=== PATIENT | male | born 1950 | race Caucasian/White ===

== ENCOUNTER 2022-02-25 16:44 | Outpatient (RCR) | payer MEDICARE, SELFPAY ==
[2022-02-25 08:24] LABS: Basophils Absolute Auto 0.05 K/uL (0.00-0.30); Basophils Percent Auto 0.7 % (0.0-3.0); Eosinophils Percent Auto 9.6 % (0.0-7.0); Hematocrit 36.7 % (37.0-53.0); Hemoglobin* 12.6 gm/dL (13.5-17.5); Immature Granulocytes Abs Auto 0.05 K/uL (0.00-0.30); Mean Corpuscular HGB Conc 34 gm/dL (32-36); Mean Corpuscular Hemoglobin 31 pg (26-34); Mean Corpuscular Volume 89 fL (80-100); Monocytes Percent Auto 10.3 % (0.0-11.0); Neutrophils Absolute Auto 4.53 K/uL (1.7-7.0); Neutrophils Percent Auto 62.7 % (42.0-72.0); Platelet Count* 277 K/uL (140-440); RDW Coefficient of Variation % 12.7 % (11.5-15.5); Red Blood Count 4.11 m/uL (4.30-5.90); White Blood Count* 7.21 K/uL (4.50-11.00)
[2022-02-25 08:27] LABS: Slide Review Reflex No
[2022-02-25 08:38] LABS: Albumin* 4.2 g/dL (3.3-5.0); Chloride* 102 mmol/L (96-114); Sodium* 136 mmol/L (135-149)
[2022-02-25 08:39] LABS: Potassium* 3.8 mmol/L (3.6-5.1)
[2022-02-25 08:41] LABS: Aspartate Amino Transferase* 23 U/L (12-35); Bilirubin Total* 0.6 mg/dL (0.1-1.5); Blood Urea Nitrogen* 16 mg/dL (7-30); Carbon Dioxide* 27 mmol/L (20-32); Creatinine* 0.7 mg/dL (0.5-1.5); Estimated Glomerular Filt Rate 99 ml/min; Total Protein* 7.1 g/dL (6.0-8.3)
[2022-02-25 08:42] LABS: Alanine Aminotransferase* 17 U/L (4-50); Alkaline Phosphatase* 85 U/L (40-150); Calcium* 9.5 mg/dL (8.4-10.6); Glucose* 105 mg/dL (60-115)
[2022-02-25 09:13] LABS: PSA Diagnostic* 0.11 ng/mL (0.10-4.00)
--- NOTE | 2022-03-01 13:17 | ONC.NURNOTE ---
Lab reviewd by Dr Burris and called to [place] reports small improvement in fatigue with 3 tabs/day Xtand noted change in PSA will review with provider again next month with a PSA
== END 2022-03-06 23:59 | disposition home or self-care (01) ==
LOC: CCIC 16:44
PROVIDERS: Nurse Practitioner Family; PCP Family Medicine; Visit Provider Internal Medicine Medical Oncology
DX: C61 Malignant neoplasm of prostate (principal); M85.80 Other specified disorders of bone density and structure, unspecified site
CPT/HCPCS: 36415; 80053; 84153; 85025

== ENCOUNTER 2022-08-04 09:30 | Outpatient (RCR) | payer MEDICARE, SELFPAY ==
[2022-03-23 08:38] LABS: Basophils Percent Auto 0.2 % (0.0-3.0); Eosinophils Percent Auto 7.8 % (0.0-7.0); Hematocrit 38.3 % (37.0-53.0); Hemoglobin* 13.3 gm/dL (13.5-17.5); Immature Granulocytes Abs Auto 0.02 K/uL (0.00-0.30); Lymphocytes Percent Auto 17.4 % (20-44); Mean Corpuscular HGB Conc 35 gm/dL (32-36); Mean Corpuscular Hemoglobin 31 pg (26-34); Mean Corpuscular Volume 88 fL (80-100); Monocytes Percent Auto 9.6 % (0.0-11.0); Neutrophils Percent Auto 64.6 % (42.0-72.0); Platelet Count* 218 K/uL (140-440); RDW Coefficient of Variation % 12.6 % (11.5-15.5); Red Blood Count 4.34 m/uL (4.30-5.90); White Blood Count* 4.47 K/uL (4.50-11.00)
[2022-03-23 08:49] LABS: Slide Review Reflex No
[2022-03-23 08:53] LABS: Albumin* 4.2 g/dL (3.3-5.0); Chloride* 99 mmol/L (96-114); Potassium* 3.3 mmol/L (3.6-5.1); Sodium* 136 mmol/L (135-149)
[2022-03-23 08:55] LABS: Bilirubin Total* 0.5 mg/dL (0.1-1.5); Creatinine* 0.7 mg/dL (0.5-1.5); Estimated Glomerular Filt Rate 99 ml/min
[2022-03-23 08:56] LABS: Alanine Aminotransferase* 23 U/L (4-50); Alkaline Phosphatase* 63 U/L (40-150); Aspartate Amino Transferase* 30 U/L (12-35); Blood Urea Nitrogen* 15 mg/dL (7-30); Calcium* 9.1 mg/dL (8.4-10.6); Carbon Dioxide* 30 mmol/L (20-32); Glucose* 131 mg/dL (60-115); Total Protein* 7.2 g/dL (6.0-8.3)
[2022-03-23 09:23] LABS: PSA Diagnostic* 0.12 ng/mL (0.10-4.00)
[2022-04-20 08:18] LABS: Basophils Absolute Auto 0.04 K/uL (0.00-0.30); Basophils Percent Auto 0.8 % (0.0-3.0); Eosinophils Percent Auto 7.7 % (0.0-7.0); Hematocrit 36.4 % (37.0-53.0); Hemoglobin* 12.5 gm/dL (13.5-17.5); Immature Granulocytes Abs Auto 0.03 K/uL (0.00-0.30); Lymphocytes Percent Auto 17.9 % (20-44); Mean Corpuscular HGB Conc 34 gm/dL (32-36); Mean Corpuscular Hemoglobin 31 pg (26-34); Mean Corpuscular Volume 89 fL (80-100); Monocytes Percent Auto 11.9 % (0.0-11.0); Neutrophils Absolute Auto 3.25 K/uL (1.7-7.0); Neutrophils Percent Auto 61.1 % (42.0-72.0); Platelet Count* 210 K/uL (140-440); RDW Coefficient of Variation % 13.1 % (11.5-15.5); Red Blood Count 4.08 m/uL (4.30-5.90); White Blood Count* 5.31 K/uL (4.50-11.00)
[2022-04-20 08:23] LABS: Slide Review Reflex No
[2022-04-20 08:47] LABS: Albumin* 4.3 g/dL (3.3-5.0); Chloride* 102 mmol/L (96-114); Potassium* 3.6 mmol/L (3.6-5.1); Sodium* 136 mmol/L (135-149)
[2022-04-20 08:49] LABS: Aspartate Amino Transferase* 25 U/L (12-35); Bilirubin Total* 0.8 mg/dL (0.1-1.5); Carbon Dioxide* 27 mmol/L (20-32); Creatinine* 0.7 mg/dL (0.5-1.5); Estimated Glomerular Filt Rate 99 ml/min
[2022-04-20 08:50] LABS: Alanine Aminotransferase* 19 U/L (4-50); Alkaline Phosphatase* 74 U/L (40-150); Blood Urea Nitrogen* 15 mg/dL (7-30); Calcium* 9.2 mg/dL (8.4-10.6); Glucose* 109 mg/dL (60-115); Total Protein* 7.1 g/dL (6.0-8.3)
[2022-04-20 09:18] LABS: PSA Diagnostic* 0.12 ng/mL (0.10-4.00)
--- NOTE | 2022-04-21 12:35 | ONC.NURNOTE ---
Lab results reviewed by Lolly and called to [place] noted as stable, PSA stable reports less hot flashes since reducing dose no new concerns next appts reviewed
[2022-05-18 08:26] LABS: Basophils Percent Auto 0.5 % (0.0-3.0); Eosinophils Percent Auto 5.6 % (0.0-7.0); Hematocrit 37.3 % (37.0-53.0); Hemoglobin* 12.8 gm/dL (13.5-17.5); Immature Granulocytes Abs Auto 0.02 K/uL (0.00-0.30); Lymphocytes Percent Auto 22.7 % (20-44); Mean Corpuscular HGB Conc 34 gm/dL (32-36); Mean Corpuscular Hemoglobin 31 pg (26-34); Mean Corpuscular Volume 89 fL (80-100); Monocytes Percent Auto 13.4 % (0.0-11.0); Neutrophils Percent Auto 57.3 % (42.0-72.0); Platelet Count* 231 K/uL (140-440); Red Blood Count 4.19 m/uL (4.30-5.90); White Blood Count* 3.96 K/uL (4.50-11.00)
[2022-05-18 08:34] LABS: Slide Review Reflex No
[2022-05-18 08:57] LABS: Albumin* 4.5 g/dL (3.3-5.0); Chloride* 101 mmol/L (96-114); Potassium* 3.8 mmol/L (3.6-5.1); Sodium* 136 mmol/L (135-149)
[2022-05-18 08:59] LABS: Bilirubin Total* 0.8 mg/dL (0.1-1.5); Creatinine* 0.7 mg/dL (0.5-1.5); Estimated Glomerular Filt Rate 99 ml/min
[2022-05-18 09:00] LABS: Alanine Aminotransferase* 19 U/L (4-50); Alkaline Phosphatase* 68 U/L (40-150); Aspartate Amino Transferase* 26 U/L (12-35); Blood Urea Nitrogen* 19 mg/dL (7-30); Calcium* 9.7 mg/dL (8.4-10.6); Carbon Dioxide* 25 mmol/L (20-32); Glucose* 110 mg/dL (60-115); Total Protein* 7.1 g/dL (6.0-8.3)
[2022-05-18 09:30] LABS: PSA Diagnostic* 0.12 ng/mL (0.10-4.00)
--- NOTE | 2022-07-28 09:25 | ONC.NURNOTE ---
Approved for re-enrollment for 2022 [employer] for free medication
--- NOTE | 2022-08-01 11:58 | URNOTE ---
Request received for authorization for Leuprolide (J9217). Prior authorization is not required per [facility] injectable drug authorization list.
[2022-08-03 08:31] LABS: Basophils Absolute Auto 0.03 K/uL (0.00-0.30); Basophils Percent Auto 0.5 % (0.0-3.0); Eosinophils Percent Auto 7.6 % (0.0-7.0); Hematocrit 37.8 % (37.0-53.0); Immature Granulocytes Abs Auto 0.02 K/uL (0.00-0.30); Immature Granulocytes Pct Auto 0.4 %; Lymphocytes Percent Auto 18.3 % (20-44); Mean Corpuscular HGB Conc 34 gm/dL (32-36); Mean Corpuscular Hemoglobin 31 pg (26-34); Mean Corpuscular Volume 90 fL (80-100); Monocytes Percent Auto 12.2 % (0.0-11.0); Neutrophils Absolute Auto 3.39 K/uL (1.7-7.0); Platelet Count* 270 K/uL (140-440); RDW Coefficient of Variation % 12.7 % (11.5-15.5); Red Blood Count 4.21 m/uL (4.30-5.90); White Blood Count* 5.56 K/uL (4.50-11.00)
[2022-08-03 08:33] LABS: Slide Review Reflex No
[2022-08-03 08:52] LABS: Albumin* 4.4 g/dL (3.3-5.0); Chloride* 103 mmol/L (96-114)
[2022-08-03 08:53] LABS: Potassium* 4.1 mmol/L (3.6-5.1); Sodium* 137 mmol/L (135-149)
[2022-08-03 08:55] LABS: Aspartate Amino Transferase* 23 U/L (12-35); Bilirubin Total* 0.8 mg/dL (0.1-1.5); Carbon Dioxide* 29 mmol/L (20-32); Creatinine* 0.9 mg/dL (0.5-1.5); Estimated Glomerular Filt Rate 91 ml/min
[2022-08-03 08:56] LABS: Alanine Aminotransferase* 21 U/L (4-50); Alkaline Phosphatase* 62 U/L (40-150); Blood Urea Nitrogen* 15 mg/dL (7-30); Calcium* 9.6 mg/dL (8.4-10.6); Glucose* 114 mg/dL (60-115); Total Protein* 6.9 g/dL (6.0-8.3)
[2022-08-03 10:07] LABS: PSA Diagnostic* 0.23 ng/mL (0.10-4.00)
== END 2022-09-19 23:59 | disposition home or self-care (01) ==
LOC: CCIC 09:30
PROVIDERS: Internal Medicine Medical Oncology; Nurse Practitioner Family; PCP Family Medicine; Referring Provider Family Medicine; Visit Provider Physician Assistant
DX: C61 Malignant neoplasm of prostate (principal); C79.51 Secondary malignant neoplasm of bone; M85.80 Other specified disorders of bone density and structure, unspecified site
CPT/HCPCS: 36415; 80053; 84153; 85025; 96401; 99212; 99214; J9217

== ENCOUNTER 2022-11-17 12:42 | Outpatient (CLI) | payer MEDICARE, SELFPAY ==
--- NOTE | 2022-11-17 13:00 | CRLHL7_ITS ---
For Patients: As a result of the Century Cures Act, medical imaging exams and procedure reports are released immediately into your electronic medical record. You may view this report before your referring provider. If you have questions, please contact your health care provider. DXA BONE MINERAL DENSITY STUDY Reason for exam: Osteopenia; androgen deprivation therapy. Current height (in): 68. Weight (lb): 215. Menopause age: N/A. Ethnicity: White. 1. Have you had a previous hip or vertebral fracture? No. 2. Have you had any fractures during your adult life which did not result from significant trauma (e.g., auto accident)? No. 3. Did either of your parents have a hip fracture? No. 4. Do you smoke? No. 5. Have you ever taken Glucocorticoids? No. 6. Do you have rheumatoid arthritis? No. 7. Do you have secondary osteoporosis? No. 8. Do you drink 3 or more alcoholic drinks per day? No. 9. Are you being treated for osteoporosis? No. 10. Have you ever taken any of the following medications: Actonel, Evista, Fosamax, Miacalcin, Reclast, Boniva, Forteo, HRT (i.e., estrogen/hormone therapy), Protelos, Prolia, Vitamin D, Calcium, other ??? please specify. ANSWER: Yes, calcium. 11. Do you have any of the following medical conditions: Anorexia or bulimia, asthma or emphysema, end stage renal disease, hyperparathyroidism, any seizure disorders, cancer, inflammatory bowel diseases, hysterectomy, other ??? please specify. ANSWER: Yes, cancer. 12. What was your maximum height (inches)? 69. 13. Do you perform weight bearing exercise regularly? No 14. Do you regularly consume dairy products? Yes. 15. Do you drink caffeinated beverages? Yes. TECHNIQUE: Bone mineral density study was performed using the [employer]. FINDINGS: The results of the study expressed as bone mineral density (BMD) are as follows: Lumbar spine L1 to L2: BMD: 1.104 g/cm2. T-score: 0.5. Z-score: 1.4 Neck Left: BMD: 0.789 g/cm2. T-score: -1.0. Z-score: 0.2 Right: BMD: 0.873 g/cm2. T-score: -0.4. Z-score: 0.8 Total Left: BMD: 1.022 g/cm2. T-score: -0.1. Z-score: 0.6 Right: BMD: 1.054 g/cm2. T-score: 0.1. Z-score: 0.9 IMPRESSION: Normal bone density. Mack Medina M.D. Diagnostic Radiologist [email or web address]/Dictated by: Mack Medina MD @ 11/17/2022 1:50:00 PM (Electronically Signed)
== END 2022-11-17 12:43 | disposition home or self-care (01) ==
LOC: RAD 12:43
PROVIDERS: PCP Family Medicine; Visit Provider Physician Assistant
DX: M85.80 Other specified disorders of bone density and structure, unspecified site (principal); Z79.818 Long term (current) use of other agents affecting estrogen receptors and estrogen levels
CPT/HCPCS: 77080

== ENCOUNTER 2023-02-13 09:00 | Outpatient (RCR) | payer MEDICARE, SELFPAY ==
[2022-11-02 08:13] LABS: Basophils Absolute Auto 0.03 K/uL (0.00-0.30); Basophils Percent Auto 0.5 % (0.0-3.0); Eosinophils Absolute Auto 0.28 K/uL (0.00-0.50); Eosinophils Percent Auto 5.1 % (0.0-7.0); Hemoglobin* 12.8 gm/dL (13.5-17.5); Immature Granulocytes Abs Auto 0.01 K/uL (0.00-0.30); Immature Granulocytes Pct Auto 0.2 %; Lymphocytes Percent Auto 19.3 % (20-44); Mean Corpuscular HGB Conc 34 gm/dL (32-36); Mean Corpuscular Hemoglobin 30 pg (26-34); Mean Corpuscular Volume 90 fL (80-100); Monocytes Percent Auto 12.4 % (0.0-11.0); Neutrophils Absolute Auto 3.44 K/uL (1.7-7.0); Neutrophils Percent Auto 62.5 % (42.0-72.0); Platelet Count* 249 K/uL (140-440); RDW Coefficient of Variation % 13.1 % (11.5-15.5); Red Blood Count 4.22 m/uL (4.30-5.90)
[2022-11-02 08:16] LABS: Slide Review Reflex No
[2022-11-02 08:26] LABS: Albumin* 4.5 g/dL (3.3-5.0); Chloride* 100 mmol/L (96-114); Sodium* 137 mmol/L (135-149)
[2022-11-02 08:27] LABS: Potassium* 3.9 mmol/L (3.6-5.1)
[2022-11-02 08:29] LABS: Alanine Aminotransferase* 23 U/L (4-50); Alkaline Phosphatase* 54 U/L (40-150); Aspartate Amino Transferase* 25 U/L (12-35); Bilirubin Total* 0.9 mg/dL (0.1-1.5); Blood Urea Nitrogen* 19 mg/dL (7-30); Carbon Dioxide* 31 mmol/L (20-32); Creatinine* 0.8 mg/dL (0.5-1.5); Estimated Glomerular Filt Rate 95 ml/min; Glucose* 124 mg/dL (60-115); Total Protein* 7.4 g/dL (6.0-8.3)
[2022-11-02 08:30] LABS: Calcium* 9.4 mg/dL (8.4-10.6)
[2022-11-02 09:00] LABS: PSA Diagnostic* 0.42 ng/mL (0.10-4.00)
[2023-02-01 08:21] LABS: Basophils Absolute Auto 0.03 K/uL (0.00-0.30); Basophils Percent Auto 0.5 % (0.0-3.0); Eosinophils Absolute Auto 0.39 K/uL (0.00-0.50); Hematocrit 40.9 % (37.0-53.0); Hemoglobin* 13.9 gm/dL (13.5-17.5); Immature Granulocytes Abs Auto 0.03 K/uL (0.00-0.30); Immature Granulocytes Pct Auto 0.5 %; Mean Corpuscular HGB Conc 34 gm/dL (32-36); Mean Corpuscular Hemoglobin 31 pg (26-34); Mean Corpuscular Volume 90 fL (80-100); Monocytes Percent Auto 10.2 % (0.0-11.0); Neutrophils Absolute Auto 4.25 K/uL (1.7-7.0); Neutrophils Percent Auto 64.8 % (42.0-72.0); Platelet Count* 294 K/uL (140-440); RDW Coefficient of Variation % 12.9 % (11.5-15.5); Red Blood Count 4.56 m/uL (4.30-5.90); White Blood Count* 6.55 K/uL (4.50-11.00)
[2023-02-01 08:26] LABS: Slide Review Reflex No
[2023-02-01 08:36] LABS: Albumin* 4.5 g/dL (3.3-5.0); Chloride* 100 mmol/L (96-114); Potassium* 3.9 mmol/L (3.6-5.1); Sodium* 136 mmol/L (135-149)
[2023-02-01 08:38] LABS: Bilirubin Total* 0.9 mg/dL (0.1-1.5); Creatinine* 0.8 mg/dL (0.5-1.5); Estimated Glomerular Filt Rate 94 ml/min
[2023-02-01 08:39] LABS: Alanine Aminotransferase* 21 U/L (4-50); Alkaline Phosphatase* 64 U/L (40-150); Aspartate Amino Transferase* 27 U/L (12-35); Blood Urea Nitrogen* 18 mg/dL (7-30); Calcium* 9.8 mg/dL (8.4-10.6); Carbon Dioxide* 28 mmol/L (20-32); Glucose* 102 mg/dL (60-115); Total Protein* 7.5 g/dL (6.0-8.3)
[2023-02-01 09:07] LABS: PSA Diagnostic* 0.89 ng/mL (0.10-4.00)
[2023-02-14 08:02] LABS: Testosterone, Adult Male 8 ng/dL (300-720)
== END 2023-05-01 23:59 | disposition home or self-care (01) ==
LOC: CCIC 09:00
PROVIDERS: Physician Assistant; PCP Family Medicine; Referring Provider Family Medicine; Visit Provider Internal Medicine Hematology & Oncology
DX: C61 Malignant neoplasm of prostate (principal)
CPT/HCPCS: 36415; 80053; 84153; 84403; 85025; 96401; 99212; 99215; J9217

== ENCOUNTER 2023-09-20 15:05 | Outpatient (CLI) | payer MEDICARE, SELFPAY | END 2023-09-20 15:06 | disposition home or self-care (01) | LOC: MRI 15:07 | PROVIDERS: PCP Family Medicine; Visit Provider Internal Medicine | DX: R97.21 Rising PSA following treatment for malignant neoplasm of prostate (principal) | CPT/HCPCS: 72158; A9575 ==

== ENCOUNTER 2023-10-12 06:05 | Day surgery (SDC) | payer MEDICARE, SELFPAY ==
[2023-10-12 06:20] VITALS: BP 141/78; PULSE 52; RESP 16; TEMP 36.2; O2SAT 98; BMI 35.6
[2023-10-12] MEDS: LACTATED RINGERS 1000 ML 1,000 ML 100 ML IV (06:25)
[2023-10-12 06:44] LABS: Basophils Absolute Auto 0.02 K/uL (0.00-0.30); Basophils Percent Auto 0.4 % (0.0-3.0); Eosinophils Percent Auto 7.1 % (0.0-7.0); Hematocrit 37.2 % (37.0-53.0); Hemoglobin* 12.7 gm/dL (13.5-17.5); Immature Granulocytes Abs Auto 0.02 K/uL (0.00-0.30); Immature Granulocytes Pct Auto 0.4 %; Mean Corpuscular HGB Conc 34 gm/dL (32-36); Mean Corpuscular Hemoglobin 30 pg (26-34); Mean Corpuscular Volume 89 fL (80-100); Monocytes Percent Auto 11.5 % (0.0-11.0); Neutrophils Absolute Auto 3.48 K/uL (1.7-7.0); Neutrophils Percent Auto 61.6 % (42.0-72.0); Platelet Count* 232 K/uL (140-440); RDW Coefficient of Variation % 12.9 % (11.5-15.5); Red Blood Count 4.19 m/uL (4.30-5.90); White Blood Count* 5.64 K/uL (4.50-11.00)
[2023-10-12] MEDS: SODIUM CHLORIDE 0.9 % (FLUSH) 10 ML SYRINGE IVF (06:45)
--- NOTE | 2023-10-12 06:57 | XR_ITS ---
Patient: VI SUBRAMANIAN Facility:?[facility] Patient ID:?[id number] Site Patient ID:?[id number]. Site :?1950 Study:?XRay-Chest 1V-10/12/2023 8:47:03 AM Ordering Physician:EZEQUIEL Final Report: INDICATION: Post operative port cath TECHNIQUE: Chest radiograph 1 view COMPARISON: None FINDINGS: The sensitivity and specificity of the exam are moderately limited by the patient`s body habitus. Mediastinum: The mediastinum is normal in appearance. The cardiac silhouette is mildly enlarged but may be accentuated by the portable technique. Right Port-A-Cath is present with the tip in the SVC. Lung: Both lungs are unremarkable in appearance with small lung volumes. No sign of pleural effusion seen. No pneumothorax is identified. Bone and Soft tissue: Unremarkable for age. IMPRESSIONS: 1. Right Port-A-Cath is present with the tip in the SVC. 2. The cardiac silhouette is mildly enlarged but may be accentuated by the portable technique. Dictated by Alon Blevins MD @ 10/12/2023 9:51:49 AM Dictated by: Alon Blevins MD @ 10/12/2023 09:51:52 Signed by:?Alon Blevins MD @10/12/2023 9:51:52 AM (Electronic Signature)
[2023-10-12 07:00] LABS: Albumin* 4.3 g/dL (3.3-5.0); Chloride* 103 mmol/L (96-114)
[2023-10-12 07:01] LABS: Potassium* 3.7 mmol/L (3.6-5.1); Sodium* 136 mmol/L (135-149)
[2023-10-12 07:03] LABS: Anion Gap 5 mEq/L (7-15); Aspartate Amino Transferase* 22 U/L (12-35); Bilirubin Total* 0.8 mg/dL (0.1-1.5); Carbon Dioxide* 28 mmol/L (20-32); Creatinine* 0.7 mg/dL (0.5-1.5); Est. Creatinine Clearance* 60.26; Estimated Glomerular Filt Rate 98 ml/min; Total Protein* 7.2 g/dL (6.0-8.3)
[2023-10-12 07:04] LABS: Alanine Aminotransferase* 19 U/L (4-50); Alkaline Phosphatase* 68 U/L (40-150); Blood Urea Nitrogen* 19 mg/dL (7-30); Calcium* 9.8 mg/dL (8.4-10.6); Glucose* 105 mg/dL (60-115)
[2023-10-12 07:15] LABS: Slide Review Reflex No
--- NOTE | 2023-10-12 07:15 | XR_ITS ---
Patient: VI SUBRAMANIAN Facility:?[facility] Patient ID:?[id number] Site Patient ID:?[id number]. Site :?1950 Study:?XRay-Chest PORT CATH-10/12/2023 8:10:38 AM Ordering Physician:EZEQUIEL Final Report: Indication: Port-A-Cath placement Technique: Two fluoroscopic images of the chest. Fluoroscopic time 45.6 seconds. IMPRESSION: Fluoroscopic guidance for Port-A-Cath placement. Dictated by Mack Medina MD @ 10/12/2023 10:30:33 AM Signed by:?Mack Medina MD @10/12/2023 10:30:33 AM (Electronic Signature)
[2023-10-12] MEDS: CEFAZOLIN 2 GM INJ IVP (07:25)
[2023-10-12] MEDS: 0.9 % SODIUM CHLORIDE 50 ml INJECTION (08:00)
[2023-10-12] MEDS: BUPIVACAINE 0.5% 30 ML INJECTION (08:00)
[2023-10-12] MEDS: HEPARIN 500 UNIT/5 ML SYRINGE IVF (08:00)
[2023-10-12] MEDS: LIDOCAINE 1 % PF 30 ML INJECTION (08:03)
[2023-10-12 08:18] VITALS: BP 136/87; PULSE 56; RESP 16; TEMP 36.4; O2SAT 97
--- NOTE | 2023-10-12 08:21 | XR_ITS ---
Patient: VI SUBRAMANIAN Facility:?[facility] Patient ID:?[id number] Site Patient ID:?[id number]. Site :?1950 Study:?XRay-Chest 1V-10/12/2023 8:47:03 AM Ordering Physician:EZEQUIEL Final Report: INDICATION: Post operative port cath TECHNIQUE: Chest radiograph 1 view COMPARISON: None FINDINGS: The sensitivity and specificity of the exam are moderately limited by the patient`s body habitus. Mediastinum: The mediastinum is normal in appearance. The cardiac silhouette is mildly enlarged but may be accentuated by the portable technique. Right Port-A-Cath is present with the tip in the SVC. Lung: Both lungs are unremarkable in appearance with small lung volumes. No sign of pleural effusion seen. No pneumothorax is identified. Bone and Soft tissue: Unremarkable for age. IMPRESSIONS: 1. Right Port-A-Cath is present with the tip in the SVC. 2. The cardiac silhouette is mildly enlarged but may be accentuated by the portable technique. Dictated by Alon Blevins MD @ 10/12/2023 9:51:49 AM Dictated by: Alon Blevins MD @ 10/12/2023 09:51:52 Signed by:?Alon Blevins MD @10/12/2023 9:51:52 AM (Electronic Signature)
--- NOTE | 2023-10-12 08:22 | W.PM.H&PU ---
History & Physical Update History & Physical Update H&P Reviewed and patient assessed: No changes noted
--- NOTE | 2023-10-12 08:22 | W.ANESCHARGE ---
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
--- NOTE | 2023-10-12 08:22 | PM.GSPRC ---
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 He is followed by Oncology who recommended a port a catheter for initiation of chemotherapy. Risks and benefits of the operation were discussed at length the patient. Risks included, but were not limited to: Bleeding, infection, risk of damage to surrounding structures and possible need for additional procedures. All questions and concerns were addressed with patient agreeing to proceed. Procedure Description: After discussing the risks and benefits of the procedure, the patient signed informed consent.? The operative site was marked and the patient was brought to the operating room and placed on the operating table in supine position.? Care was taken to pad the patient's pressure points.?? The patient was then intubated by anesthesia.?? The operative site was then prepped and draped in the usual sterile fashion.? A time-out was then performed. The patient's right internal jugular vein was visualized using ultrasound. Local anesthetic was injected into the neck skin above the vein. This was accessed percutaneously via Seldinger technique using ultrasound guidance. A skin andrés was made around the wire. Next local anesthetic was injected into the skin below the clavicle and along the proposed tract to the neck incision. A skin incision was then made with a 15 blade and a pocket created in the chest wall with cautery. A tunneler was then used to thread the catheter from the chest wall pocket to the neck incision. Once this was done fluoroscopy was brought into the field. Over the wire the tract was dilated using fluoroscopy. The wire and the dilator were then removed leaving the sheath intact in the vein. Through this the catheter was threaded. Using fluoroscopy the catheter was positioned into the distal SVC. The catheter was noted to flush and aspirate easily. The catheter was then connected to the port. The port was placed in the pocket and secured in place with a single 2 0 Prolene stay suture on the medial side of the port. It was noted to flush and aspirate easily. This was then locked with heparinized saline. The skin was closed with absorbable suture. Sterile dressings were applied. The port was then accessed and is ok to use immediately. Instrument sponge and needle counts were correct at the end of the case. The patient was woken and taken to the PACU in stable condition. Findings: Compressible right internal jugular vein. Anesthesia: MAC and local Surgeon: Shayna Quan MD Estimated blood loss (mL): 5 Condition: stable Disposition: same day
[2023-10-12 08:30] VITALS: BP 144/77; PULSE 53; RESP 16; O2SAT 97
--- NOTE | 2023-10-12 08:41 | W.ANESCHARGE ---
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
[2023-10-12 08:45] VITALS: BP 151/80; PULSE 53; RESP 16; O2SAT 96
== END 2023-10-12 09:10 | disposition home or self-care (01) ==
PROVIDERS: PCP Family Medicine; Visit Provider Surgery
PROC: (CPT 36561; principal; 2023-10-12 07:15)
DX: Z45.2 Encounter for adjustment and management of vascular access device (principal); C61 Malignant neoplasm of prostate; C79.51 Secondary malignant neoplasm of bone
CPT/HCPCS: 36561; 00532; 36415; 71045; 76000; 76998; 80053; 85025; 99100; C1788; J0665; J0690; J1100; J1642; J2001; J2405; J2704; J3010; J7120

== ENCOUNTER 2023-10-12 10:30 | Outpatient (RCR) | payer MEDICARE, SELFPAY ==
[2023-05-03 08:16] LABS: Basophils Absolute Auto 0.03 K/uL (0.00-0.30); Basophils Percent Auto 0.6 % (0.0-3.0); Immature Granulocytes Abs Auto 0.04 K/uL (0.00-0.30); Immature Granulocytes Pct Auto 0.7 %; Lymphocytes Percent Auto 19.8 % (20-44); Mean Corpuscular HGB Conc 34 gm/dL (32-36); Mean Corpuscular Hemoglobin 30 pg (26-34); Mean Corpuscular Volume 89 fL (80-100); Monocytes Percent Auto 10.6 % (0.0-11.0); Neutrophils Absolute Auto 3.26 K/uL (1.7-7.0); Neutrophils Percent Auto 60.3 % (42.0-72.0); Platelet Count* 250 K/uL (140-440); Red Blood Count 4.27 m/uL (4.30-5.90)
[2023-05-03 08:28] LABS: Chloride* 101 mmol/L (96-114); Slide Review Reflex No
[2023-05-03 08:29] LABS: Albumin* 4.3 g/dL (3.3-5.0); Potassium* 3.8 mmol/L (3.6-5.1); Sodium* 138 mmol/L (135-149)
[2023-05-03 08:32] LABS: Alanine Aminotransferase* 23 U/L (4-50); Alkaline Phosphatase* 62 U/L (40-150); Anion Gap 9 mEq/L (7-15); Aspartate Amino Transferase* 27 U/L (12-35); Bilirubin Total* 0.8 mg/dL (0.1-1.5); Blood Urea Nitrogen* 18 mg/dL (7-30); Calcium* 9.8 mg/dL (8.4-10.6); Carbon Dioxide* 28 mmol/L (20-32); Creatinine* 0.8 mg/dL (0.5-1.5); Estimated Glomerular Filt Rate 94 ml/min; Glucose* 118 mg/dL (60-115); Total Protein* 7.3 g/dL (6.0-8.3)
[2023-05-03 09:03] LABS: PSA Diagnostic* 0.62 ng/mL (0.10-4.00)
--- NOTE | 2023-07-05 12:33 | ONC.NURNOTE ---
Addendum entered by Irish Aviles RN 08/14/23 13:47: Enrollment Confirmation letter received for 2023 [employer] through 08/06/2024 Original Note: [employer] confirmed re enrollment thru 08/06/24 Principal Hardware Architect called Oriana to confirm this - no fax was sent to the office
[2023-07-26 08:10] LABS: Basophils Absolute Auto 0.03 K/uL (0.00-0.30); Basophils Percent Auto 0.5 % (0.0-3.0); Eosinophils Percent Auto 8.8 % (0.0-7.0); Hematocrit 38.5 % (37.0-53.0); Hemoglobin* 13.1 gm/dL (13.5-17.5); Immature Granulocytes Abs Auto 0.01 K/uL (0.00-0.30); Immature Granulocytes Pct Auto 0.2 %; Lymphocytes Absolute Auto 1.33 K/uL (0.90-2.90); Mean Corpuscular HGB Conc 34 gm/dL (32-36); Mean Corpuscular Hemoglobin 31 pg (26-34); Mean Corpuscular Volume 91 fL (80-100); Monocytes Percent Auto 11.7 % (0.0-11.0); Neutrophils Absolute Auto 3.44 K/uL (1.7-7.0); Neutrophils Percent Auto 56.8 % (42.0-72.0); Platelet Count* 241 K/uL (140-440); RDW Coefficient of Variation % 12.9 % (11.5-15.5); Red Blood Count 4.24 m/uL (4.30-5.90); White Blood Count* 6.05 K/uL (4.50-11.00)
[2023-07-26 08:26] LABS: Slide Review Reflex No
[2023-07-26 08:32] LABS: Albumin* 4.4 g/dL (3.3-5.0); Chloride* 101 mmol/L (96-114); Sodium* 137 mmol/L (135-149)
[2023-07-26 08:33] LABS: Potassium* 4.2 mmol/L (3.6-5.1)
[2023-07-26 08:35] LABS: Alanine Aminotransferase* 22 U/L (4-50); Alkaline Phosphatase* 64 U/L (40-150); Anion Gap 12 mEq/L (7-15); Aspartate Amino Transferase* 23 U/L (12-35); Bilirubin Total* 0.8 mg/dL (0.1-1.5); Blood Urea Nitrogen* 19 mg/dL (7-30); Carbon Dioxide* 24 mmol/L (20-32); Creatinine* 0.8 mg/dL (0.5-1.5); Estimated Glomerular Filt Rate 94 ml/min; Glucose* 124 mg/dL (60-115); Total Protein* 7.2 g/dL (6.0-8.3)
[2023-07-26 08:36] LABS: Calcium* 9.5 mg/dL (8.4-10.6)
[2023-07-26 09:05] LABS: PSA Diagnostic* 1.22 ng/mL (0.10-4.00)
--- NOTE | 2023-08-31 14:21 | ONC.NURNOTE ---
New RX for Xtandi 40 mg X 4 #120 refills x 11- called to [facility] as written by Dr Dyana Lan faxed copy was not received
[2023-10-05 09:38] LABS: Basophils Absolute Auto 0.02 K/uL (0.00-0.30); Basophils Percent Auto 0.3 % (0.0-3.0); Eosinophils Absolute Auto 0.32 K/uL (0.00-0.50); Eosinophils Percent Auto 5.3 % (0.0-7.0); Hematocrit 38.3 % (37.0-53.0); Immature Granulocytes Abs Auto 0.03 K/uL (0.00-0.30); Immature Granulocytes Pct Auto 0.5 %; Lymphocytes Percent Auto 19.1 % (20-44); Mean Corpuscular HGB Conc 34 gm/dL (32-36); Mean Corpuscular Hemoglobin 31 pg (26-34); Mean Corpuscular Volume 90 fL (80-100); Monocytes Percent Auto 11.4 % (0.0-11.0); Neutrophils Absolute Auto 3.85 K/uL (1.7-7.0); Neutrophils Percent Auto 63.4 % (42.0-72.0); Platelet Count* 258 K/uL (140-440); RDW Coefficient of Variation % 13.1 % (11.5-15.5); Red Blood Count 4.26 m/uL (4.30-5.90); White Blood Count* 6.07 K/uL (4.50-11.00)
[2023-10-05 09:41] LABS: Slide Review Reflex No
[2023-10-05 09:50] LABS: Albumin* 4.4 g/dL (3.3-5.0); Chloride* 99 mmol/L (96-114)
[2023-10-05 09:51] LABS: Sodium* 136 mmol/L (135-149)
[2023-10-05 09:53] LABS: Alanine Aminotransferase* 18 U/L (4-50); Alkaline Phosphatase* 58 U/L (40-150); Anion Gap 8 mEq/L (7-15); Aspartate Amino Transferase* 24 U/L (12-35); Bilirubin Total* 0.7 mg/dL (0.1-1.5); Blood Urea Nitrogen* 16 mg/dL (7-30); Carbon Dioxide* 29 mmol/L (20-32); Creatinine* 0.7 mg/dL (0.5-1.5); Estimated Glomerular Filt Rate 98 ml/min; Glucose* 133 mg/dL (60-115); Total Protein* 7.5 g/dL (6.0-8.3)
[2023-10-05 09:54] LABS: Calcium* 9.8 mg/dL (8.4-10.6)
--- NOTE | 2023-10-05 14:53 | ONC.NURNOTE ---
Referral for port placement faxed to [facility].
--- NOTE | 2023-10-06 13:29 | URNOTE ---
Request received for authorization for Taxotere (J9171). Prior authorization is not required per [facility] drug authorization list.
--- NOTE | 2023-10-09 16:05 | ONC.NURNOTE ---
Chemo start treatment planning Patient cleared by Dr Lan that he may start his Taxotere same day of port placement patient called with the following instructions: to bring his steroid with him to take after port placement- he will be NPO in am teaching on taxotere prior to treatment on bring a lunch snack to eat after surg SDS will keep port accessed and will draw CBC CMP prior to surg on
--- NOTE | 2023-10-12 10:30 | ONC.NURNOTE ---
Reviewed possible side effects of taxotere reveiwed self care at home, after hours management, fever management, steroid schedule, reviewed contents of chemotherapy binder questions addressed about port care for the next 1-2 days consent and DESTIN forms reviewed and signed
[2023-10-12] MEDS: ONDANSETRON 2 MG/ML inj 8 MG IVP (10:33)
[2023-10-12] MEDS: TUBING SECONDARY IVPB (11:00)
[2023-10-12] MEDS: DOCETAXEL IVPB (11:00)
[2023-10-12] MEDS: SODIUM CHL 0.9% IVPB (11:00)
[2023-10-12] MEDS: 0.9 % SODIUM CHLORIDE 250 ml IV (11:02)
[2023-10-12] MEDS: SODIUM CHLORIDE 0.9 % (FLUSH) 10 ML SYRINGE IVF ×2 (11:02→12:27)
[2023-10-12] MEDS: HEPARIN 500 UNIT/5 ML SYRINGE IVF (12:27)
--- NOTE | 2023-10-12 14:36 | ONC.NURNOTE ---
PSDS=5 noted pain and tingling/hands and feet offered SS consult with next visit patient and denied need and discussed if need changes to let us know
--- NOTE | 2023-10-13 11:42 | PC.NURSE ---
Called pt today to check in after his first chemo yesterday. [place] states that he is doing well and has no concerns. He has no nausea and is taking meds as directed. Franklin notes that his port site is tender, RN advised he use ice and Tylenol as needed for pain. Reviewed reasons to go to ER over the weekend. Pt verbalized understanding. Support offered.
--- NOTE | 2023-10-16 10:44 | ONC.NURNOTE ---
Addendum entered by Irish Aviles RN 10/16/23 12:26: Dispersion Mixer discussed patients concerns with Loreta Mohan PA-C regarding TENA's patient states it has improved since the weekend- taking 500mg tylenol BID- he can feel the pull from the glue from port site when he turns his head and that is starting to improve- also noted that the ondansetron he used may have contributed to HAs discussed knee and other joint pain as a possible side effect of taxotere patient corrected self and states he looked at his records and realized he had never had prednisone before plan- to continue on prednisone for the time- calling if side effects are disruptive- prednisone is part of his chemotherapy regimen for CRMPC- and preference is to continue if patient is able to tolerate the dosing take miralax and or senna as needed after chemo to manage constipation call with continued HAs and joint pain patient agrees to above Original Note: Patient called reporting following concerns since restarting prednisone Monday reports constipation- resolved with a ExLax- typewriter assembler recommended keeping Senna and Miralax at home reports headaches- thinks it is from neck stiffness and discomfort from port placement reports knee joint achiness states he has taken prednisone in the past and was not able to tolerate it will follow up with provider for next steps
== END 2023-10-30 23:59 | disposition home or self-care (01) ==
LOC: CCIC 10:30
PROVIDERS: Internal Medicine Hematology & Oncology; Physician Assistant; PCP Family Medicine; Referring Provider Family Medicine; Visit Provider Clinical Nurse Specialist
DX: Z51.11 Encounter for antineoplastic chemotherapy (principal); C61 Malignant neoplasm of prostate; Z45.2 Encounter for adjustment and management of vascular access device
CPT/HCPCS: 00532; 36415; 71045; 76000; 76998; 80053; 84153; 85025; 96376; 96401; 96413; 99100; 99211; 99212; 99213; 99214; 99215; G0463; C1788; J0665; J0690; J1100; J1642; J2001; J2405; J2704; J3010; J7050; J7120; J9171; J9217

== ENCOUNTER 2023-12-20 09:30 | Observation (INO) | payer MEDICARE, SELFPAY ==
[2023-12-20 09:34] VITALS: BP 110/66; PULSE 70; RESP 18; TEMP 36.9; O2SAT 96; BMI 33.0
--- NOTE | 2023-12-20 09:45 | ED_ITS ---
HPI - General Adult General Time Seen by Provider: 09:45 Date Seen: 12/20/23 Chief complaint: Fever Stated complaint: fever/chills/ cancer pt. Time Seen by Provider: 12/20/23 09:44 Source: patient, RN notes reviewed and old records reviewed Mode of arrival: ambulatory Limitations: no limitations History of Present Illness HPI narrative: This 73-year-old male is ambulatory into the ED of his own accord accompanied by his with concern of a fever of 102? F this morning. He woke up and felt warm, took his temperature. He did take 2 ibuprofen which has relieved the temperature. He has had a little bit of a cough, it sounds as if it is productive. No shortness of breath. He did have a brief episode of chills yesterday. No chills overnight, no night sweats overnight. He denies any abdominal symptoms such as pain, nausea, vomiting, diarrhea. No urinary symptoms. Patient is on docetaxel chemotherapy, had a dose on December 09. 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 He progressed on Xtandi and they have initiated the docetaxel in context of rising PSA and increasing PSMA activity on PET scan. He did have a dental infection and tooth extracted about 2 weeks ago, did complete a 10 day course of amoxicillin. He has no dental pain, no pain at the site. Related Data Home Medications Medication Instructions Recorded Confirmed acetaminophen 325 mg capsule 325 - 650 mg PO Q4-6H PRN 02/24/22 12/20/23 ibuprofen 400 mg tablet 400 mg PO QID PRN 02/24/22 12/20/23 lisinopril 20 1 tab PO DAILY 02/24/22 12/20/23 mg-hydrochlorothiazide 25 mg tablet (Zestoretic) simvastatin 20 mg tablet 20 mg PO HS 02/24/22 12/20/23 calcium carbonate-vitamin 2 tab PO BID 11/03/22 12/20/23 D2-minerals chewable tablet potassium gluconate 595 mg (99 mg) 595 mg PO QDAY 12/14/23 12/20/23 tablet dexamethasone 4 mg tablet 8 mg PO DAILY PRN edema 12/20/23 12/20/23 metoprolol succinate 100 mg 100 mg PO DAILY 12/20/23 12/20/23 tablet,extended release 24 hr Previous Rx's Medication Instructions Recorded ondansetron HCl 4 mg tablet 4 mg PO Q6H PRN nausea #30 tabs 10/05/23 prochlorperazine maleate 10 mg 10 mg PO TID PRN nausea #30 tabs 10/05/23 tablet prednisone 5 mg tablet 5 mg PO BID #60 tabs 12/07/23 amoxicillin 875 mg-potassium 1 tab PO Q12H 7 days #14 tabs 12/21/23 clavulanate 125 mg tablet ciprofloxacin HCl 500 mg tablet 500 mg PO BID 7 days #14 tabs 12/21/23 (Cipro) Allergies Allergy/AdvReac Type Severity Reaction Status Date / Time adhesive Allergy atopic Verified 12/20/23 12:20 dermatits Review of Systems Status of ROS: Reports: 6 or more systems reviewed and unremarkable except as noted in History and below [facility] Medical History (Updated 12/21/23 @ 10:04 by Erin Blake MD) Chronic steroid use Rheumatic fever ?I00 - Rheumatic fever without heart involvement (ICD-10) Hyperlipidemia ?E78.5 - Hyperlipidemia, unspecified (ICD-10) HTN (hypertension) ?I10 - Essential (primary) hypertension (ICD-10) Osteopenia ?M85.80 - Other specified disorders of bone density and structure, unspecified site (ICD-10) Prostate cancer metastatic to bone ?C61 - Malignant neoplasm of prostate (ICD-10) ?C79.51 - Secondary malignant neoplasm of bone (ICD-10) Surgical History S/P total knee arthroplasty ?Z96.659 - Presence of unspecified artificial knee joint (ICD-10) H/O hernia repair ?Z98.890 - Other specified postprocedural states (ICD-10) ?Z87.19 - Personal history of other diseases of the digestive system (ICD-10) S/P appy ?Z90.49 - Acquired absence of other specified parts of digestive tract (ICD- 10) History of robot-assisted laparoscopic radical prostatectomy ?Z90.79 - Acquired absence of other genital organ(s) (ICD-10) S/P radiation therapy ?Z92.3 - Personal history of irradiation (ICD-10) Social History (Updated 12/20/23 @ 15:39 by Drew Lui MD) Narrative: He lives with his , Natalia, in [place]. 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 Code status is full. He does not smoke. He rarely drinks alcohol and has had no alcohol in the last 3 months during chemotherapy What is your current living situation?: I presently have a place to live Problems where you live: no known problems Problems where you live details: No known problems In the past 12 months, utilities in danger of being shut off: no In past 12 months, lack of transportation kept you from medical appts, meetings, work, or getting things needed for daily living: no In the past 12 mos, have been you worried that your food would run out before you had money to buy more?: never true In the past 12 mos, the food you bought just didn't last and you didn't have money to buy more?: never true Highest level of school completed/degree received: high school graduate Smoking Status: Never smoker Do you use any of these nicotine containing products: None How often do you have a drink containing alcohol: 2-4 times a month Alcohol type: beer and hard liquor How many standard drinks containing alcohol do you have on a typical day: 1 or 2 How often do you have six or more drinks on one occasion: Never AUDIT-C Alcohol total score: 2 Non-prescribed substance use: denies use Caffeine: Yes Are you now , , , , never or living with a partner: Social isolation score (0-1 are the most socially isolated patients): 1 How often does anyone, including family, friends and others, physically hurt you : never How often does anyone, including family, friends and others, insult or talk down to you: never How often does anyone, including family, friends and others, threaten you with harm: never How often does anyone, including family, friends and others, scream or curse at you: never service: Yes Exam Const: Vital Signs, click to edit/add: Vital Signs - 24 hr 12/20/23 09:34 Temperature 98.5 F Pulse Rate [Right Pulse Oximeter] 70 Respiratory Rate 18 Blood Pressure [Ri ght Upper Arm] 110/66 Pulse Oximetry 96 Oxygen Delivery Me thod Room Air This 73-year-old male is alert, interactive, no parents stress. Skin is alaniz, no rash noted. Sclera clear, conjugate gaze. Oropharynx reveals normal mucosa, the right lower jaw where the tooth was taken out reveals no significant erythema, looks to be well healed. Neck supple, do not appreciate any jugular venous distension. Lungs are clear, no significant wheezing or crackles heard, no tachypnea noted. CV regular rate and rhythm, no murmur, normal S1-S2, no S3- S4. Abdomen is soft, nontender, nondistended, feel no masses. He has no lower extremity edema. Documenting provider has reviewed patient's vital signs: yes Course Course ED Course: Chemotherapy patient with reported fever of 102? F at home, improved with ibuprofen. Need to do a full workup on this patient looking for infectious etiology. He does have a port in his right chest wall. Will need to get a blood culture from the port as well as peripherally. Will look at urine, respiratory system. With his coughing, that may possibly be site of infection with early pneumonia. We will see where his white blood count is. He currently is hemodynamically stable. Reevaluation(s) Time of Reevaluation #1: 12:12 Reevaluation #1: Reviewed that patient will be going to get a CT of his chest abdomen pelvis to help us define any potential underlying source for infection. He is still feeling okay. He is sitting up watching TV. Reviewed that his white blood count is low but his neutrophils are still above 1000. I have concern for this patient having underlying serious bacterial infection given his chemotherapy. We will see if we find anything on the CT. Will discuss with the hospitalist markos mccall at this point I would likely favor a period of observation. Will have to talk to the hospitalist once I have reports back in see if they are in agreement. On up-to-date, even patients who are potentially meeting criteria for discharge to home on 2 regimen oral antibiotics, they do caution consideration for hospital observation initially. Consultations Consultation #1: Reviewed with Dr. Lui. Will talk to the patient about options of him being low risk and doing outpatient oral management verses IV in the hospital. Did review the guidelines from up-to-date. Did subsequently talk to the patient and his , they are unsure of what to do. They wondered if the oncologist would have any input. I did go down and talk to Dr. Orellana, with his total white count being 1920, she recommended at least a 24 hour observation. In the hospital. Did update patient and his , they are agreeable to this. Will let Dr. Lui know as well. Time: 14:05 Vital Signs Vital signs: Initial Vital Signs Temperature 98.5 F 12/20/23 09:34 Temperature Source Oral 12/20/23 09:34 Pulse Rate 70 12/20/23 09:34 Respiratory Rate 18 12/20/23 09:34 Blood Pressure 110/66 12/20/23 09:34 Blood Pressure Mean 80 12/20/23 09:34 Blood Pressure Position Sitting 12/20/23 09:34 Pulse Oximetry 96 12/20/23 09:34 Oxygen Delivery Method Room Air 12/20/23 09:34 Vital Signs Temperature 98.5 F 12/20/23 09:34 Pulse Rate 70 12/20/23 09:34 Respiratory Rate 18 12/20/23 09:34 Blood Pressure 110/66 12/20/23 09:34 Pulse Oximetry 96 12/20/23 09:34 Oxygen Delivery Method Room Air 12/20/23 09:34 Temperature 98.0 F 12/21/23 09:03 Pulse Rate 66 12/21/23 09:03 Respiratory Rate 20 12/21/23 09:03 Blood Pressure 136/64 12/21/23 09:03 Pulse Oximetry 95 12/21/23 09:03 Oxygen Delivery Method Room Air 12/21/23 09:03 Medications Administered Medications: Discontinued Medications Generic Name Dose Route Start Last Admin Trade Name Freq PRN Reason Stop Dose Admin Calcium Carbonate 1 tab 12/20/23 18:00 12/21/23 08:44 Calcium Carbonate/Vitamin D3 (500mg/5mcg) Tablet PO 1 tab BIDWM TEO Administration Heparin Sodium (Porcine) 500 unit 12/20/23 16:20 12/21/23 12:00 Heparin 500 Unit/5 Ml Syringe IVF 500 unit FLUSHPRN PRN Administration Hydrochlorothiazide 25 mg 12/21/23 09:00 12/21/23 08:44 Hydrochlorothiazide 25 Mg Tablet PO 25 mg DAILY TEO Administration Hydrocortisone Sodium Succinate 100 mg 12/20/23 15:32 12/20/23 16:36 Hydrocortisone Sod Succinate 50 Mg/Ml Inj IVP 12/20/23 15:33 100 mg ONCE ONE Administration Hydrocortisone Sodium Succinate 50 mg 12/20/23 22:00 12/21/23 05:43 Hydrocortisone Sod Succinate 50 Mg/Ml Inj IVP 50 mg Q8H TEO Administration Piperacillin Sod/Tazobactam 100 mls @ 200 mls/hr 12/20/23 12:41 12/20/23 13:51 Sod 3.375 gm/ Sodium Chloride IVPB 12/20/23 12:42 Infused ONCE ONE Infusion Vancomycin HCl 2,000 mg/ 520 mls @ 260 mls/hr 12/20/23 15:28 12/20/23 18:57 Sodium Chloride IVPB 12/20/23 15:29 Infused ONCE ONE Infusion Protocol Piperacillin Sod/Tazobactam 100 mls @ 200 mls/hr 12/20/23 19:15 12/21/23 07:26 Sod 3.375 gm/ Sodium Chloride IVPB 200 mls/hr Q6H TEO Administration Sodium Chloride 1,000 mls @ 35 mls/hr 12/20/23 20:25 12/20/23 20:38 0.9 % Sodium Chloride 1000 Ml IV 35 mls/hr .Q24H TEO Administration Lisinopril 20 mg 12/21/23 09:00 12/21/23 08:44 Lisinopril 20 Mg Tablet PO 20 mg DAILY TEO Administration Metoprolol Succinate 100 mg 12/21/23 09:00 12/21/23 08:45 Metoprolol Succinate (Xl) 100 Mg Tab PO 100 mg DAILY TEO Administration Simvastatin 20 mg 12/20/23 21:00 12/20/23 21:02 Simvastatin 20 Mg Tablet PO 20 mg HS TEO Administration Sodium Chloride 5 ml 12/20/23 21:00 12/20/23 22:40 Sodium Chloride 0.9 % (Flush) 10 Ml Syringe IVF 5 ml BID TEO Administration Sodium Chloride 10 ml 12/20/23 16:20 12/21/23 12:00 Sodium Chloride 0.9 % (Flush) 10 Ml Syringe IVF 10 ml .FLUSH PRN Administration Medical Decision Making Lab Data Lab results reviewed: Yes I reviewed the patient's lab results Labs: Lab Results 12/20/23 12/20/23 12/20/23 Range/Units 10:30 11:35 11:50 WBC 1.95 L* (4.50-11.00) K/uL RBC 3.59 L (4.30-5.90) m/uL Hgb 10.8 L (13.5-17.5) gm/dL Hct 32.0 L (37.0-53.0) % MCV 89 (80-100) fL MCH 30 (26-34) pg MCHC 34 (32-36) gm/dL RDW Coeff of Trena 14.6 (11.5-15.5) % Plt Count 319 (140-440) K/uL Neut % (Auto) 66.1 (42.0-72.0) % Lymph % (Auto) 15.9 L (20-44) % Dixon % (Auto) 6.7 (0.0-11.0) % Eos % (Auto) 3.6 (0.0-7.0) % Baso % (Auto) 1.5 (0.0-3.0) % Neut # (Auto) 1.30 L (1.7-7.0) K/uL Lymph # (Auto) 0.30 L (0.90-2.90) K/uL Dixon # (Auto) 0.10 (0.00-0.90) K/UL Eos # (Auto) 0.10 (0.00-0.50) K/uL Baso # (Auto) 0.00 (0.00-0.30) K/uL Abs Immat Gran (auto) 0.10 (0.00-0.30) K/uL Imm/Tot Granulo (auto) 6.2 % Diff Slide Review Acceptable Review (Acceptable) Sodium 131 L (135-149) mmol/L Potassium 3.5 L (3.6-5.1) mmol/L Chloride 98 (96-114) mmol/L Carbon Dioxide 27 (20-32) mmol/L Anion Gap 6 L (7-15) mEq/L BUN 21 (7-30) mg/dL Creatinine 0.8 (0.5-1.5) mg/dL Estimated Creat Clear 64.60 Estimated GFR 94 ml/min Glucose 107 (60-115) mg/dL Lactate 0.9 (0.5-1.9) mmol/L Calcium 9.0 (8.4-10.6) mg/dL Total Bilirubin 1.0 (0.1-1.5) mg/dL Direct Bilirubin 0.0 (0.0-0.5) mg/dL AST 26 (12-35) U/L ALT 23 (4-50) U/L Alkaline Phosphatase 65 (40-150) U/L C-Reactive Protein 3.1 H (0.5-1.0) mg/dL Total Protein 6.8 (6.0-8.3) g/dL Albumin 3.8 (3.3-5.0) g/dL Procalcitonin 0.10 (<0.50) ng/mL Urine Color Yellow (Yellow) Urine Appearance Clear (Clear) Urine pH 6.0 (5.0-8.5) Ur Specific [place] >= 1.030 (1.000-1.030) Urine Protein Negative (Negative) Urine Glucose (UA) Negative (Negative) Urine Ketones Negative (Negative) Urine Blood Negative (Negative) Urine Nitrite Negative (Negative) Urine Bilirubin Negative (Negative) Urine Urobilinogen 0.2 (0.2-1.0) Ur Leukocyte Esterase Negative (Negative) Urine RBC 0-2 (0-2) Urine WBC 0-2 (0-5) Ur Squamous Epith Cells Few (None-Few) Urine Bacteria Few A (None) SARS-CoV-2 (PCR) Negative SARS-CoV-2 (Negative) Influenza Type A (PCR) Negative PCR FLU A (Negative) Influenza Type B (PCR) Negative PCR FLU B (Negative) RSV (PCR) Negative PCR RSV (Negative) Imaging Data Chest x-ray: Attestation: I have reviewed the pertinent imaging results. Radiologist's impression: Patient: VI SUBRAMANIAN Facility:?[facility] Patient ID:?[id number] Site Patient ID:?[id number]. Site :?1950 Study:?XRay-Chest 1V PORTABLE-12/20/2023 10:10:17 AM Ordering Physician:SEVERO Final Report: INDICATION: FEVER TECHNIQUE: Chest 1 views. COMPARISON: 10/12/2023 FINDINGS: Cardiovascular and mediastinum: Stable mild prominence of the cardiomediastinal silhouette. Right Port-A-Cath is present with the tip in the SVC. Lungs and pleural spaces: Lungs are clear. No sign of infiltrate. No sign of pleural effusion. No pneumothorax. Bones and soft tissues: No significant findings. IMPRESSION: No evidence of acute cardiopulmonary process. Dictated by Quinn Mendoza MD @ 12/20/2023 10:23:06 AM (Electronic Signature) CT Chest/Ab/Pelvis: Attestation: I have reviewed the pertinent imaging results. Radiologist's impression: Patient: VI SUBRAMANIAN Facility:?[facility] Patient ID:?[id number] Site Patient ID:?[id number]. Site :?1950 Study:?CT-Chest/Abd/Pelvis W/ 106CC ISOVUE 370-12/20/2023 12:26:20 PM Ordering Physician:SEVERO Final Report: INDICATION: Fever. On chemotherapy for prostate cancer. TECHNIQUE: CT chest, abdomen and pelvis acquired with 106 cc of Isovue 370 IV contrast. COMPARISON: Chest radiograph 12/20/2023. FINDINGS: CHEST: Cardiovascular structures: Thoracic aorta and main pulmonary arteries are normal in caliber. Coronary artery calcifications. Heart size is within normal limits. Mediastinum and shon: No pathologic lymphadenopathy. Lungs: No pneumothorax. Central airways are patent. Mild bibasilar scarring or atelectasis. Lungs are otherwise clear. Pleura and pericardium: No effusions. Chest wall and axilla: Right IJ Port-A-Cath terminates near the cavoatrial junction. ABDOMEN AND PELVIS: Liver: Unremarkable. Spleen: Unremarkable. Pancreas: Unremarkable. Gallbladder and bile ducts: No calcified stones or biliary ductal dilatation. Kidneys: No urolithiasis, hydronephrosis or suspicious focal lesion. Adrenal glands: Unremarkable. GI tract: Postoperative changes of the right colon show no evidence of complication. No obstruction or focal inflammatory changes. No free air or free fluid. Lymph nodes: No pathologic lymphadenopathy. Vascular structures: Atherosclerotic disease. No abdominal aortic aneurysm. Pelvic Organs: Prostatectomy. Bladder as imaged is unremarkable. Bones: Irregular sclerotic osseous metastasis in the proximal sacrum and L5 vertebra. Degenerative changes of the spine and pelvis. No acute osseous abnormality. IMPRESSION: 1. No acute abnormality in the chest, abdomen and pelvis. 2. Sclerotic osseous metastasis in the L5 vertebra and sacrum. Dictated by Len Curry MD @ 12/20/2023 12:45:39 PM Please note that all CT scans at this facility use dose modulation, iterative reconstruction, and/or weight-based dosing when appropriate to reduce radiation dose to as low as reasonably achievable. Dictated by: Len Curry MD @ 12/20/2023 12:45:56 (Electronic Signature) Discharge Plan Discharge Clinical Impression: Prostate cancer Fever Qualifiers: Fever type: unspecified Qualified Code(s): R50.9 - Fever, unspecified Patient Disposition: Admitted As Observation Condition: Improved Activity Level: Activity as Tolerated and No strenuous activity Activity Detail: Make sure you're staying away from sick people for the next week
[2023-12-20 09:52] VITALS: O2SAT 96
--- NOTE | 2023-12-20 09:52 | XR_ITS ---
Patient: VI SUBRAMANIAN Facility:?[facility] Patient ID:?[id number] Site Patient ID:?[id number]. Site :?1950 Study:?XRay-Chest 1V PORTABLE-12/20/2023 10:10:17 AM Ordering Physician:SEVERO Final Report: INDICATION: FEVER TECHNIQUE: Chest 1 views. COMPARISON: 10/12/2023 FINDINGS: Cardiovascular and mediastinum: Stable mild prominence of the cardiomediastinal silhouette. Right Port-A-Cath is present with the tip in the SVC. Lungs and pleural spaces: Lungs are clear. No sign of infiltrate. No sign of pleural effusion. No pneumothorax. Bones and soft tissues: No significant findings. IMPRESSION: No evidence of acute cardiopulmonary process. Dictated by Quinn Mendoza MD @ 12/20/2023 10:23:06 AM Signed by:?Quinn Mendoza MD @12/20/2023 10:23:06 AM (Electronic Signature)
[2023-12-20 10:42] LABS: Basophils Percent Auto 1.5 % (0.0-3.0); Eosinophils Percent Auto 3.6 % (0.0-7.0); Hemoglobin* 10.8 gm/dL (13.5-17.5); Immature Granulocytes Pct Auto 6.2 %; Lymphocytes Percent Auto 15.9 % (20-44); Mean Corpuscular HGB Conc 34 gm/dL (32-36); Mean Corpuscular Hemoglobin 30 pg (26-34); Mean Corpuscular Volume 89 fL (80-100); Monocytes Percent Auto 6.7 % (0.0-11.0); Neutrophils Percent Auto 66.1 % (42.0-72.0); Platelet Count* 319 K/uL (140-440); RDW Coefficient of Variation % 14.6 % (11.5-15.5); Red Blood Count 3.59 m/uL (4.30-5.90)
[2023-12-20 10:44] LABS: Lactate* 0.9 mmol/L (0.5-1.9)
[2023-12-20 10:48] LABS: Slide Review Reflex Yes; White Blood Count* 1.95 K/uL (4.50-11.00)
[2023-12-20 10:55] LABS: Slide Review Acceptable Review (Acceptable)
[2023-12-20 11:16] LABS: Albumin* 3.8 g/dL (3.3-5.0); Chloride* 98 mmol/L (96-114)
[2023-12-20 11:17] LABS: Sodium* 131 mmol/L (135-149)
[2023-12-20 11:18] LABS: Potassium* 3.5 mmol/L (3.6-5.1)
[2023-12-20 11:19] LABS: Anion Gap 6 mEq/L (7-15); Aspartate Amino Transferase* 26 U/L (12-35); Carbon Dioxide* 27 mmol/L (20-32); Creatinine* 0.8 mg/dL (0.5-1.5); Estimated Glomerular Filt Rate 94 ml/min; Total Protein* 6.8 g/dL (6.0-8.3)
[2023-12-20 11:20] LABS: Alanine Aminotransferase* 23 U/L (4-50); Alkaline Phosphatase* 65 U/L (40-150); Blood Urea Nitrogen* 21 mg/dL (7-30); Glucose* 107 mg/dL (60-115)
[2023-12-20 11:22] LABS: C Reactive Protein* 3.1 mg/dL (0.5-1.0)
[2023-12-20 12:01] LABS: Appearance Urine Clear (Clear); Bilirubin Urine Negative (Negative); Blood Urine Negative (Negative); Color Urine Yellow (Yellow); Glucose Urine Negative (Negative); Ketones Urine Negative (Negative); Leukocyte Esterase Urine Negative (Negative); Nitrite Urine Negative (Negative); Protein Urine Negative (Negative); Specific Gravity Urine >= 1.030 (1.000-1.030); Urobilinogen Urine 0.2 (0.2-1.0)
--- NOTE | 2023-12-20 12:01 | CT_ITS ---
Patient: VI SUBRAMANIAN Facility:?[facility] Patient ID:?[id number] Site Patient ID:?[id number]. Site :?1950 Study:?CT-Chest/Abd/Pelvis W/ 106CC ISOVUE 370-12/20/2023 12:26:20 PM Ordering Physician:SEVERO Final Report: INDICATION: Fever. On chemotherapy for prostate cancer. TECHNIQUE: CT chest, abdomen and pelvis acquired with 106 cc of Isovue 370 IV contrast. COMPARISON: Chest radiograph 12/20/2023. FINDINGS: CHEST: Cardiovascular structures: Thoracic aorta and main pulmonary arteries are normal in caliber. Coronary artery calcifications. Heart size is within normal limits. Mediastinum and shon: No pathologic lymphadenopathy. Lungs: No pneumothorax. Central airways are patent. Mild bibasilar scarring or atelectasis. Lungs are otherwise clear. Pleura and pericardium: No effusions. Chest wall and axilla: Right IJ Port-A-Cath terminates near the cavoatrial junction. ABDOMEN AND PELVIS: Liver: Unremarkable. Spleen: Unremarkable. Pancreas: Unremarkable. Gallbladder and bile ducts: No calcified stones or biliary ductal dilatation. Kidneys: No urolithiasis, hydronephrosis or suspicious focal lesion. Adrenal glands: Unremarkable. GI tract: Postoperative changes of the right colon show no evidence of complication. No obstruction or focal inflammatory changes. No free air or free fluid. Lymph nodes: No pathologic lymphadenopathy. Vascular structures: Atherosclerotic disease. No abdominal aortic aneurysm. Pelvic Organs: Prostatectomy. Bladder as imaged is unremarkable. Bones: Irregular sclerotic osseous metastasis in the proximal sacrum and L5 vertebra. Degenerative changes of the spine and pelvis. No acute osseous abnormality. IMPRESSION: 1. No acute abnormality in the chest, abdomen and pelvis. 2. Sclerotic osseous metastasis in the L5 vertebra and sacrum. Dictated by Len Curry MD @ 12/20/2023 12:45:39 PM Please note that all CT scans at this facility use dose modulation, iterative reconstruction, and/or weight-based dosing when appropriate to reduce radiation dose to as low as reasonably achievable. Dictated by: Len Curry MD @ 12/20/2023 12:45:56 Signed by:?Len Curry MD @12/20/2023 12:45:56 PM (Electronic Signature)
[2023-12-20 12:26] LABS: PCR FLU A Negative PCR FLU A (Negative); PCR FLU B Negative PCR FLU B (Negative); PCR RSV Negative PCR RSV (Negative); SARS PCR* Negative SARS-CoV-2 (Negative)
[2023-12-20 12:33] LABS: Bacteria Urine Few; RBC Urine 0-2 (0-2); Squamous Epithelial Cell Urine Few (None-Few); WBC Urine 0-2 (0-5)
[2023-12-20] MEDS: PIPERACILLIN/TAZOBACTAM 3.375 GM in 0.9 % SODIUM CHLORIDE Mini-bag 100 ML IVPB ×2 (13:14→18:57)
--- NOTE | 2023-12-20 15:33 | P.IMHP_ITS ---
Hospitalist- H&P: HPI History of Present Illness Date Seen: 12/20/23 Chief complaint: fever/chills/ cancer pt. Narrative: Franklin Escalera is a 73 year old male with metastatic prostate cancer treated with docetaxel presents with a 2 day history of fatigue and malaise and a 1 day history of fever and chills. Patient is currently undergoing docetaxel treatment for metastatic prostate cancer. He got his 4th treatment on December 13. The previous 3 cycles were without significant complications. He reports generally doing well except 2 weeks ago he had an infected molar on a on the right side of his mandible. This was treated with amoxicillin and got better. He has been off the amoxicillin for a couple days. He did not have a fever with that. He has had no other symptoms of illness recently. He has not had any recent travel. Specifically denies respiratory illness, cough, chest pain, abdominal pain, nausea, diarrhea, new urinary problems. He does have some chronic urinary incontinence since prostatectomy 8 years ago. He has had no skin rash. No other known exposures. Review of Systems Narrative: Other than 2 days of fatigue and malaise and 1 day of fever he reports no other significant symptoms. His tooth is not bothering him. review of systems is negative except as noted above [facility] Medical History (Updated 12/20/23 @ 15:44 by Drew Lui MD) Chronic steroid use Rheumatic fever ?I00 - Rheumatic fever without heart involvement (ICD-10) Hyperlipidemia ?E78.5 - Hyperlipidemia, unspecified (ICD-10) HTN (hypertension) ?I10 - Essential (primary) hypertension (ICD-10) Osteopenia ?M85.80 - Other specified disorders of bone density and structure, unspec ified site (ICD-10) Prostate cancer metastatic to bone ?C61 - Malignant neoplasm of prostate (ICD-10) ?C79.51 - Secondary malignant neoplasm of bone (ICD-10) Surgical History S/P total knee arthroplasty ?Z96.659 - Presence of unspecified artificial knee joint (ICD-10) H/O hernia repair ?Z98.890 - Other specified postprocedural states (ICD-10) ?Z87.19 - Personal history of other diseases of the digestive system (ICD-10) S/P appy ?Z90.49 - Acquired absence of other specified parts of digestive tract (ICD- 10) History of robot-assisted laparoscopic radical prostatectomy ?Z90.79 - Acquired absence of other genital organ(s) (ICD-10) S/P radiation therapy ?Z92.3 - Personal history of irradiation (ICD-10) Social History (Updated 12/20/23 @ 15:39 by Drwe Lui MD) Narrative: He lives with his , Natalia, in [place]. is healthcare power of immigration attorney. Code status is full. He does not smoke. He rarely drinks alcohol and has had no alcohol in the last 3 months during chemotherapy Smoking Status: Never smoker Do you use any of these nicotine containing products: None How often do you have a drink containing alcohol: 2-4 times a month Alcohol type: beer and hard liquor How many standard drinks containing alcohol do you have on a typical day: 1 or 2 How often do you have six or more drinks on one occasion: Never AUDIT-C Alcohol total score: 2 Non-prescribed substance use: denies use Caffeine: Yes Are you now , , , , never or living with a partner: Social isolation score (0-1 are the most socially isolated patients): 1 service: No Meds Home Medications and Allergies Home Medications Medication Instructions Recorded Confirmed Type acetaminophen 325 mg capsule 325 - 650 mg PO Q4-6H PRN 02/24/22 12/20/23 History ibuprofen 400 mg tablet 400 mg PO QID PRN 02/24/22 12/20/23 History lisinopril 20 1 tab PO DAILY 02/24/22 12/20/23 History mg-hydrochlorothiazide 25 mg tablet (Zestoretic) simvastatin 20 mg tablet 20 mg PO HS 02/24/22 12/20/23 History calcium carbonate-vitamin 2 tab PO BID 11/03/22 12/20/23 History D2-minerals chewable tablet potassium gluconate 595 mg (99 mg) 595 mg PO QDAY 12/14/23 12/20/23 History tablet dexamethasone 4 mg tablet 8 mg PO DAILY PRN edema 12/20/23 12/20/23 History metoprolol succinate 100 mg 100 mg PO DAILY 12/20/23 12/20/23 History tablet,extended release 24 hr Allergies Allergy/AdvReac Type Severity Reaction Status Date / Time adhesive Allergy atopic Verified 12/20/23 12:20 dermatits Exam Narrative: Exam Narrative: He is alert and appears in no distress. He gives his own history. Head is normal. No facial asymmetry. Eyes normal. Oropharynx normal. Neck is supple without mass or adenopathy. Respirations are clear to auscultation. Breathing is unlabored. Cardiovascular: S1, S2, regular rate and rhythm. No murmur gallop or rub. Abdomen: Bowel sounds active. Abdomen is soft without tenderness or mass. External genitalia normal. Trace edema in his ankles. Intact pedal pulses. He moves all 4 extremities well. No rash. Const: Vital Signs, click to edit/add: Vital Signs - 24 hr 12/20/23 09:34 12/20/23 09:52 Temperature 98.5 F Pulse Rate [Right Pulse Oximeter] 70 Respiratory Rate 18 Blood Pressure [Ri ght Upper Arm] 110/66 Pulse Oximetry 96 96 Oxygen Delivery Me thod Room Air Documenting provider has reviewed patient's vital signs: yes Hospitalist - H&P: Result Labs Labs: Short CBC 12/20/23 Range/Units 10:30 WBC 1.95 L* (4.50-11.00) K/uL Hgb 10.8 L (13.5-17.5) gm/dL Hct 32.0 L (37.0-53.0) % Plt Count 319 (140-440) K/uL BMP 12/20/23 10:30 Sodium 131 L Potassium 3.5 L Chloride 98 Carbon Dioxide 27 BUN 21 Creatinine 0.8 Glucose 107 Calcium 9.0 Liver Function 12/20/23 Range/Units 10:30 Total Bilirubin 1.0 (0.1-1.5) mg/dL Direct Bilirubin 0.0 (0.0-0.5) mg/dL AST 26 (12-35) U/L ALT 23 (4-50) U/L Alkaline Phosphatase 65 (40-150) U/L Albumin 3.8 (3.3-5.0) g/dL Urine 12/20/23 Range/Units 11:50 Urine Color Yellow (Yellow) Urine Appearance Clear (Clear) Urine pH 6.0 (5.0-8.5) Ur Specific [place] >= 1.030 (1.000-1.030) Urine Protein Negative (Negative) Urine Glucose (UA) Negative (Negative) Imaging CT Chest/Ab/Pelvis: Radiologist's impression: Final Report: INDICATION: Fever. On chemotherapy for prostate cancer. TECHNIQUE: CT chest, abdomen and pelvis acquired with 106 cc of Isovue 370 IV contrast. COMPARISON: Chest radiograph 12/20/2023. FINDINGS: CHEST: Cardiovascular structures: Thoracic aorta and main pulmonary arteries are normal in caliber. Coronary artery calcifications. Heart size is within normal limits. Mediastinum and shon: No pathologic lymphadenopathy. Lungs: No pneumothorax. Central airways are patent. Mild bibasilar scarring or atelectasis. Lungs are otherwise clear. Pleura and pericardium: No effusions. Chest wall and axilla: Right IJ Port-A-Cath terminates near the cavoatrial junction. ABDOMEN AND PELVIS: Liver: Unremarkable. Spleen: Unremarkable. Pancreas: Unremarkable. Gallbladder and bile ducts: No calcified stones or biliary ductal dilatation. Kidneys: No urolithiasis, hydronephrosis or suspicious focal lesion. Adrenal glands: Unremarkable. GI tract: Postoperative changes of the right colon show no evidence of complication. No obstruction or focal inflammatory changes. No free air or free fluid. Lymph nodes: No pathologic lymphadenopathy. Vascular structures: Atherosclerotic disease. No abdominal aortic aneurysm. Pelvic Organs: Prostatectomy. Bladder as imaged is unremarkable. Bones: Irregular sclerotic osseous metastasis in the proximal sacrum and L5 vertebra. Degenerative changes of the spine and pelvis. No acute osseous abnorm ality. IMPRESSION: 1. No acute abnormality in the chest, abdomen and pelvis. 2. Sclerotic osseous metastasis in the L5 vertebra and sacrum. Assessment and Plan Assessment and plan (1) Fever: Problem comment: Fever associated with relative neutropenia. No obvious source for his fever. Broad-spectrum antibiotics pending culture and clinical course Status: Acute (2) Neutropenia: Problem comment: 6 days post last docetaxel infusion. May continue to get some progression of bone marrow suppression in the next few days. Continue to check CBC daily. Status: Acute (3) Prostate cancer: Status: Acute (4) Chronic steroid use: Problem comment: He takes prednisone 5 b.i.d. every day except the day before, the day of, and the day after his chemotherapy when he takes dexamethasone 8 mg daily. Will treat with stress dose steroids to prevent an adrenal crisis Status: Acute Plan 73-year-old male admitted to the hospital with febrile neutropenia. His absent neutrophil count today is 1300. This may continue did decline over the next few days. Cultures are pending. Discussed with oncology who recommended hospitalization. If fever resolves, clinically appears well and no further drop in his white count consider discharge tomorrow on outpatient Augmentin and Cipro. For now treat with Zosyn and vancomycin pending cultures and clinical course. I am going to give him stress dose steroids but he can be relatively quickly tapered off of these if he is doing well. Total Time Spent Total Time Spent: Total time spent today is 75 minutes, 50 minutes in coordination of care discussing with patient other providers ongoing evaluation management of febrile neutropenia
[2023-12-20] MEDS: HYDROCORTISONE SOD SUCCINATE 50 MG/ML inj 100 MG IVP (16:36)
[2023-12-20] MEDS: HEPARIN 500 UNIT/5 ML SYRINGE IVF (16:39)
[2023-12-20 18:08] VITALS: BP 105/72; PULSE 65; RESP 14; TEMP 36.8; O2SAT 97; BMI 32.7
[2023-12-20 19:00] VITALS: BP 117/65; PULSE 68; RESP 18; TEMP 36.7; O2SAT 94
--- NOTE | 2023-12-20 19:07 | PC.NURSE ---
Patient up to floor at 1520 accompanied by spouse. Patient is pleasant and cooperative. Neutropenic precautions in place. Patient's VSS, on RA, tolerating a reg. diet. Patient Afebrile this shift. Patient denies N/V/SOB. Patient's port on right side of chest Hep lock when not in use. Patient A/O x4. Ambulates indep. to BR. Patient has bianca. hearing aides.
[2023-12-20] MEDS: 0.9 % SODIUM CHLORIDE 1000 ml 1,000 ML 35 ML IV (20:38)
[2023-12-20] MEDS: SIMVASTATIN 20 MG TABLET PO (21:02)
[2023-12-20] MEDS: HYDROCORTISONE SOD SUCCINATE 50 MG/ML inj IVP (22:39)
[2023-12-20] MEDS: SODIUM CHLORIDE 0.9 % (FLUSH) 10 ML SYRINGE 5 ML IVF (22:40)
[2023-12-20 23:00] VITALS: BP 123/85; PULSE 63; RESP 18; TEMP 36.5; O2SAT 95
[2023-12-21] MEDS: PIPERACILLIN/TAZOBACTAM 3.375 GM in 0.9 % SODIUM CHLORIDE Mini-bag 100 ML IVPB ×2 (01:36→07:26)
[2023-12-21 03:00] VITALS: BP 133/75; PULSE 66; RESP 18; TEMP 36.4; O2SAT 95
[2023-12-21] MEDS: HYDROCORTISONE SOD SUCCINATE 50 MG/ML inj IVP (05:43)
--- NOTE | 2023-12-21 06:52 | PC.NURSE ---
End of shift report [id number]: pleasant and cooperative with cares. Denies any pain or shortness of breath this shift. Patient has remained afebrile throughout the night. Fluids started at 35ml/hr to keep line patent, per MD order. Independent in room.?
[2023-12-21 07:10] LABS: Basophils Percent Auto 0.9 % (0.0-3.0); Hematocrit 30.1 % (37.0-53.0); Hemoglobin* 10.2 gm/dL (13.5-17.5); Immature Granulocytes Pct Auto 1.9 %; Lymphocytes Percent Auto 32.7 % (20-44); Mean Corpuscular HGB Conc 34 gm/dL (32-36); Mean Corpuscular Hemoglobin 30 pg (26-34); Mean Corpuscular Volume 89 fL (80-100); Monocytes Percent Auto 18.7 % (0.0-11.0); Neutrophils Percent Auto 45.8 % (42.0-72.0); Platelet Count* 311 K/uL (140-440); RDW Coefficient of Variation % 14.5 % (11.5-15.5); Red Blood Count 3.38 m/uL (4.30-5.90)
[2023-12-21 07:14] LABS: White Blood Count* 1.07 K/uL (4.50-11.00)
[2023-12-21 07:15] LABS: Slide Review Reflex No
[2023-12-21 07:23] LABS: Chloride* 99 mmol/L (96-114); Sodium* 132 mmol/L (135-149)
[2023-12-21 07:24] LABS: Potassium* 3.7 mmol/L (3.6-5.1)
[2023-12-21 07:26] LABS: Anion Gap 4 mEq/L (7-15); Carbon Dioxide* 29 mmol/L (20-32); Creatinine* 0.7 mg/dL (0.5-1.5); Estimated Glomerular Filt Rate 98 ml/min
[2023-12-21 07:27] LABS: Blood Urea Nitrogen* 20 mg/dL (7-30); Calcium* 9.2 mg/dL (8.4-10.6); Glucose* 137 mg/dL (60-115)
[2023-12-21] MEDS: lisinopriL 20 MG TABLET PO (08:44)
[2023-12-21] MEDS: hydroCHLOROthiazide 25 MG TABLET PO (08:44)
[2023-12-21] MEDS: METOPROLOL SUCCINATE (XL) 100 MG TAB PO (08:45)
[2023-12-21 09:03] VITALS: BP 136/64; PULSE 66; RESP 20; TEMP 36.7; O2SAT 95
--- NOTE | 2023-12-21 09:56 | PM.DS1 ---
DS: Providers Provider Date Seen: 12/21/23 Date of admission: 12/20/23 15:03 Primary care physician: Troy Gay MD Admitting Clinician: Debi Moore MD Attending Physician on discharge: Erin Blake MD Date of Discharge: 12/21/23 DS: Diagnosis Discharge Diagnosis (1) Fever: Status: Acute Problem details: - in addition to neutropenia - no obvious fever source on admission, remained afebrile through hospital day 1 - 20-30K GNRs on urine culture, BCx NGTD on hospital day 1 - treated with IV Vanco and Zosyn during stay, home on oral Augmentin and Ciprofloxacin with close outpatient f/u (2) Neutropenia: Status: Acute Problem details: - 6 days post last docetaxel infusion on 12/19 admission - CBC stable upon discharge (3) Prostate cancer: Status: Acute Problem details: - follows with [facility] through [facility] (4) Chronic steroid use: Status: Acute Problem details: - at home, takes prednisone 5mg BID every day except the day before, the day of, and the day after his chemotherapy (Dexamethasone 8 mg daily at those times) - treated with stress dose IV steroids during stay, back to home dose of oral steroids upon discharge DS: Summary Hospital Course Hospital Course: Franklin is a 73-year-old male prostate cancer who presented to the hospital with fever neutropenia, admitted 12/20/2023. No source of fever identified during stay. Overnight, he was treated with IV Vancomycin and IV Zosyn, Blood culture remained negative throughout stay. Urine culture + for 20-30K GNR. Patient felt that he was at baseline and requesting discharge home on 12/20; we will send home on oral Augmentin and Cipro with close f/u. Return precautions reviewed. Status at Discharge Overall status at discharge: patient is back to baseline Time Spent with Patient Time attestation: Total time spent providing and/or coordinating discharge services: Time spent: Less than 30 minutes Exam Narrative: Exam Narrative: GEN: Alert and oriented, nontoxic and sitting comfortably in bedside chair HEENT: Normal external ears, EOMIs bilaterally, no scleral icterus CV: RRR, No concerning murmurs R: LCTA bilaterally without concerning wheezing, air movement adequate Ext: wwp, no concerning edema Skin: Large cutaneous horn right upper back noted, there is an atypical mole in the mid to left back thoracic region, patient states PCP is aware and following Neuro: No focal deficits Psych: Appropriate Const: Vital Signs, click to edit/add: Vital Signs - 24 hr 12/20/23 18:08 12/20/23 18:08 12/20/23 19:00 Temperature 98.2 F 98.1 F Pulse Rate [Pulse Oximeter] 65 68 Respiratory Rate 14 14 18 Blood Pressure [Le ft Arm] 105/72 117/65 Pulse Oximetry 97 97 94 Oxygen Delivery Me thod Room Air Room Air Room Air 12/20/23 23:00 12/20/23 23:00 12/21/23 03:00 Temperature 97.7 F 97.5 F L Pulse Rate [Pulse Oximeter] 63 63 66 Respiratory Rate 18 18 18 Blood Pressure [Le ft Arm] 123/85 133/75 Pulse Oximetry 95 95 Oxygen Delivery Me thod Room Air Room Air 12/21/23 09:03 Temperature 98.0 F Pulse Rate [Pulse Oximeter] 66 Respiratory Rate 20 Blood Pressure [Le ft Arm] 136/64 Pulse Oximetry 95 Oxygen Delivery Me thod Room Air DS: Data Data Completed and Pending Labs on day of discharge: Labs from last 24 hours 12/21/23 12/20/23 12/20/23 07:02 11:50 11:35 WBC 1.07 L* RBC 3.38 L Hgb 10.2 L Hct 30.1 L MCV 89 MCH 30 MCHC 34 RDW Coeff of Trena 14.5 Plt Count 311 Neut % (Auto) 45.8 Lymph % (Auto) 32.7 [place] % (Auto) 18.7 H Eos % (Auto) 0.0 Baso % (Auto) 0.9 Neut # (Auto) 0.50 L Lymph # (Auto) 0.30 L [place] # (Auto) 0.20 Eos # (Auto) 0.00 Baso # (Auto) 0.00 Abs Immat Gran (auto) 0.00 Imm/Tot Granulo (auto) 1.9 Diff Slide Review Sodium 132 L Potassium 3.7 Chloride 99 Carbon Dioxide 29 Anion Gap 4 L BUN 20 Creatinine 0.7 Estimated Creat Clear 64.60 Estimated GFR 98 Glucose 137 H Lactate Calcium 9.2 Total Bilirubin Direct Bilirubin AST ALT Alkaline Phosphatase C-Reactive Protein Total Protein Albumin Procalcitonin Urine Color Yellow Urine Appearance Clear Urine pH 6.0 Ur Specific [place] >= 1.030 Urine Protein Negative Urine Glucose (UA) Negative Urine Ketones Negative Urine Blood Negative Urine Nitrite Negative Urine Bilirubin Negative Urine Urobilinogen 0.2 Ur Leukocyte Esterase Negative Urine RBC 0-2 Urine WBC 0-2 Ur Squamous Epith Cells Few Urine Bacteria Few A SARS-CoV-2 (PCR) Negative SARS-CoV-2 Influenza Type A (PCR) Negative PCR FLU A Influenza Type B (PCR) Negative PCR FLU B RSV (PCR) Negative PCR RSV 12/20/23 10:30 WBC 1.95 L* RBC 3.59 L Hgb 10.8 L Hct 32.0 L MCV 89 MCH 30 MCHC 34 RDW Coeff of [place]rena 14.6 Plt Count 319 Neut % (Auto) 66.1 Lymph % (Auto) 15.9 L [place] % (Auto) 6.7 Eos % (Auto) 3.6 Baso % (Auto) 1.5 Neut # (Auto) 1.30 L Lymph # (Auto) 0.30 L [place] # (Auto) 0.10 Eos # (Auto) 0.10 Baso # (Auto) 0.00 Abs Immat Gran (auto) 0.10 Imm/Tot Granulo (auto) 6.2 Diff Slide Review Acceptable Review Sodium 131 L Potassium 3.5 L Chloride 98 Carbon Dioxide 27 Anion Gap 6 L BUN 21 Creatinine 0.8 Estimated Creat Clear 64.60 Estimated GFR 94 Glucose 107 Lactate 0.9 Calcium 9.0 Total Bilirubin 1.0 Direct Bilirubin 0.0 AST 26 ALT 23 Alkaline Phosphatase 65 C-Reactive Protein 3.1 H Total Protein 6.8 Albumin 3.8 Procalcitonin 0.10 Urine Color Urine Appearance Urine pH Ur Specific [place] Urine Protein Urine Glucose (UA) Urine Ketones Urine Blood Urine Nitrite Urine Bilirubin Urine Urobilinogen Ur Leukocyte Esterase Urine RBC Urine WBC Ur Squamous Epith Cells Urine Bacteria SARS-CoV-2 (PCR) Influenza Type A (PCR) Influenza Type B (PCR) RSV (PCR) Preliminary micro results at discharge 12/20/23 11:50 Urine Culture - Preliminary Urine,Clean Catch Gram negative aruna Discharge Plan Discharge Disposition: Home, Self-Care Date of Admission: 12/20/23 15:03 Attending Provider on Discharge: Erin Blake Primary Care Provider: Troy Gay Condition: Improved Anticipated Discharge Date/Time: 12/21/23 09:25 Discharge Medications: New amoxicillin-pot clavulanate 875-125 mg tablet 1 tab PO Q12H 7 Days Qty: 14 0RF ciprofloxacin HCl [Cipro] 500 mg tablet 500 mg PO BID 7 Days Qty: 14 0RF Continued calcium carb-vit D2-minerals Tablet,Chewable 2 tab PO BID potassium gluconate 595 mg (99 mg) tablet 595 mg PO QDAY prochlorperazine maleate 10 mg tablet 10 mg PO TID PRN (Reason: nausea) Qty: 30 3RF Rx Instructions: Take one tablet every 8 hours as needed for nausea. Use this one first. ondansetron HCl 4 mg tablet 4 mg PO Q6H PRN (Reason: nausea) Qty: 30 3RF Rx Instructions: Take one tablet as needed every 6 hours for nausea. acetaminophen 325 mg capsule 325 - 650 mg PO Q4-6H PRN ibuprofen 400 mg tablet 400 mg PO QID PRN lisinopril-hydrochlorothiazide [Zestoretic] 20-25 mg tablet 1 tab PO DAILY simvastatin 20 mg tablet 20 mg PO HS metoprolol succinate 100 mg tablet extended release 24 hr 100 mg PO DAILY dexamethasone 4 mg tablet 8 mg PO DAILY PRN (Reason: edema) Rx Instructions: Take 2 tabs (8mg) daily for 3 days, starting the day before each cycle of chemotherapy. Take with food prednisone 5 mg tablet 5 mg PO BID Qty: 60 1RF Rx Instructions: Take one tablet (5mg) twice daily with food. HOLD day before, day of, and day after chemo. Discharge Orders: Discharge Order (Routine); Ordered 12/21/23 Ordered By: Erin Blake Additional Instructions: Antibiotics at [facility] (vegetable picker and start this evening). We will call you if anything grows out of your cultures. Keep an eye on symptoms and return to ER if you have any further fevers. Activity Level: Activity as Tolerated and No strenuous activity Activity Detail: Make sure you're staying away from sick people for the next week Follow Up Appointments: Troy Gay MD [Primary Care Provider] - (7-10 days for hospital f/u please) Forms: [facility] Info Instructions
[2023-12-21] MEDS: HEPARIN 500 UNIT/5 ML SYRINGE IVF (12:00)
[2023-12-21] MEDS: SODIUM CHLORIDE 0.9 % (FLUSH) 10 ML SYRINGE IVF (12:00)
--- NOTE | 2023-12-21 13:30 | PC.NURSE ---
Discharge - Pt alert, oriented, cooperative, and pleasant. Independent in room, continent of bowel and bladder during hospital stay. Denied pain, SOB, nausea, dizziness. Tolerated RA, regular diet, fluids during hospital stay. R sided port heparinized and de-accessed prior to d/c. Discharge education given to pt and spouse with understanding verbalized. Pt d/c'd to home via wheelchair with spouse at approximately 1245.
== END 2023-12-21 12:45 | disposition home or self-care (01) ==
LOC: ED 14:24 → MEDSURG 15:04
PROVIDERS: Admitting Provider Family Medicine; Emergency Provider Family Medicine; PCP Family Medicine; Visit Provider Family Medicine
DX: R50.9 Fever, unspecified (principal); D70.9 Neutropenia, unspecified; C61 Malignant neoplasm of prostate
CPT/HCPCS: 36415; 71045; 71260; 74177; 80048; 80053; 81001; 82248; 83605; 84145; 85025; 86140; 87040; 87081; 87086; 87186; 87631; 94761; 96365; 96366; 96367; 96375; 96376; 99285; A9270; G0378; J1642; J1720; J2543; J3370; J7030; Q9967

== ENCOUNTER 2024-02-07 11:30 | Outpatient (RCR) | payer MEDICARE, SELFPAY ==
[2023-11-02 08:20] LABS: Basophils Percent Auto 0.1 % (0.0-3.0); Eosinophils Percent Auto 0.1 % (0.0-7.0); Hematocrit 36.7 % (37.0-53.0); Hemoglobin* 12.4 gm/dL (13.5-17.5); Lymphocytes Percent Auto 10.9 % (20-44); Mean Corpuscular HGB Conc 34 gm/dL (32-36); Mean Corpuscular Hemoglobin 30 pg (26-34); Mean Corpuscular Volume 90 fL (80-100); Neutrophils Percent Auto 80.9 % (42.0-72.0); Platelet Count* 291 K/uL (140-440); RDW Coefficient of Variation % 13.1 % (11.5-15.5); Red Blood Count 4.09 m/uL (4.30-5.90); White Blood Count* 13.05 K/uL (4.50-11.00)
[2023-11-02 08:33] LABS: Slide Review Reflex No
[2023-11-02 08:37] LABS: Albumin* 4.3 g/dL (3.3-5.0); Chloride* 99 mmol/L (96-114); Potassium* 4.1 mmol/L (3.6-5.1); Sodium* 133 mmol/L (135-149)
[2023-11-02 08:39] LABS: Creatinine* 0.8 mg/dL (0.5-1.5)
[2023-11-02 08:40] LABS: Alanine Aminotransferase* 21 U/L (4-50); Alkaline Phosphatase* 60 U/L (40-150); Anion Gap 5 mEq/L (7-15); Aspartate Amino Transferase* 22 U/L (12-35); Bilirubin Total* 0.6 mg/dL (0.1-1.5); Blood Urea Nitrogen* 22 mg/dL (7-30); Carbon Dioxide* 29 mmol/L (20-32); Estimated Glomerular Filt Rate 94 ml/min; Glucose* 101 mg/dL (60-115); Total Protein* 7.3 g/dL (6.0-8.3)
[2023-11-02 08:41] LABS: Calcium* 9.9 mg/dL (8.4-10.6)
[2023-11-02 09:11] LABS: PSA Diagnostic* 4.66 ng/mL (0.10-4.00)
[2023-11-02] MEDS: ONDANSETRON 2 MG/ML inj 8 MG IVP (09:49)
[2023-11-02] MEDS: SODIUM CHL 0.9% IVPB (10:08)
[2023-11-02] MEDS: DOCETAXEL IVPB (10:08)
[2023-11-02] MEDS: TUBING SECONDARY IVPB (10:08)
[2023-11-02] MEDS: HEPARIN 500 UNIT/5 ML SYRINGE IVF (11:26)
[2023-11-02] MEDS: SODIUM CHLORIDE 0.9 % (FLUSH) 10 ML SYRINGE IVF (11:26)
--- NOTE | 2023-11-08 10:18 | ONC.NURNOTE ---
Addendum entered by Brooke Benavidez RN 11/10/23 15:43: Arch Pad Cementer spoke with patient and explained need for him to see primary for possible sinus infection and also Charlee Mohan will order head MRI for patient to rule out any metastasis in his brain. Patient seems to believe it is his prednisone but understands need to be sure that it isin't anything else before stopping or cutting back on a medication used for his treatment related to his prostate cancer. Original Note: Franklin called to report TENA's that have been ongoing since port placement but more constant and bothersome the past 5 days describes as temporal bilat no vision changes no nausea drinking fluids well afeb reports some intermittent occasional sinus drainage- greenish at times reports feeling jittery often too not taking any antiemetics taking tylenol daily which controls headaches until next dose is due tried some alkaselzer for cold- did not help with TENA's Franklin attributes the HAs to his twice daily prednisone and would like to hold dose to see if this improves the HAs will discuss his concerns with provider
--- NOTE | 2023-11-14 14:34 | PC.NURSE ---
Pt's , Fiorella, called stating that Franklin had been having headaches so a brain scan was ordered. As it turns out, he got a cold and feels strongly that's why he was having headaches as sickness was coming on. He no longer has headaches and doesn't feel the need to do any brain scans. Pt's , Fiorella, invites calls back with any follow up questions. They would like brain scan orders cancelled. Will relay this message to WILFRED Cox and Dr. Moya.
[2023-11-22 08:17] LABS: Basophils Absolute Auto 0.02 K/uL (0.00-0.30); Basophils Percent Auto 0.2 % (0.0-3.0); Eosinophils Absolute Auto 0.08 K/uL (0.00-0.50); Eosinophils Percent Auto 0.9 % (0.0-7.0); Hematocrit 37.4 % (37.0-53.0); Hemoglobin* 12.4 gm/dL (13.5-17.5); Immature Granulocytes Abs Auto 0.12 K/uL (0.00-0.30); Immature Granulocytes Pct Auto 1.3 %; Lymphocytes Percent Auto 13.2 % (20-44); Mean Corpuscular HGB Conc 33 gm/dL (32-36); Mean Corpuscular Hemoglobin 30 pg (26-34); Mean Corpuscular Volume 92 fL (80-100); Monocytes Percent Auto 7.3 % (0.0-11.0); Neutrophils Percent Auto 77.1 % (42.0-72.0); Platelet Count* 285 K/uL (140-440); RDW Coefficient of Variation % 13.8 % (11.5-15.5); Red Blood Count 4.08 m/uL (4.30-5.90); White Blood Count* 9.22 K/uL (4.50-11.00)
[2023-11-22 08:27] LABS: Slide Review Reflex No
[2023-11-22 08:36] LABS: Albumin* 4.1 g/dL (3.3-5.0); Chloride* 103 mmol/L (96-114); Potassium* 3.4 mmol/L (3.6-5.1); Sodium* 138 mmol/L (135-149)
[2023-11-22 08:38] LABS: Creatinine* 0.8 mg/dL (0.5-1.5); Estimated Glomerular Filt Rate 94 ml/min
[2023-11-22 08:39] LABS: Alanine Aminotransferase* 26 U/L (4-50); Alkaline Phosphatase* 55 U/L (40-150); Anion Gap 3 mEq/L (7-15); Aspartate Amino Transferase* 24 U/L (12-35); Bilirubin Total* 0.6 mg/dL (0.1-1.5); Blood Urea Nitrogen* 18 mg/dL (7-30); Carbon Dioxide* 32 mmol/L (20-32); Glucose* 96 mg/dL (60-115); Total Protein* 6.9 g/dL (6.0-8.3)
[2023-11-22 08:40] LABS: Calcium* 9.2 mg/dL (8.4-10.6)
[2023-11-23] MEDS: 0.9 % SODIUM CHLORIDE 250 ml IV (10:59)
[2023-11-23] MEDS: SODIUM CHLORIDE 0.9 % (FLUSH) 10 ML SYRINGE IVF (11:00)
[2023-11-23] MEDS: ONDANSETRON 2 MG/ML inj 8 MG IVP (11:00)
[2023-11-23] MEDS: TUBING SECONDARY IVPB (11:27)
[2023-11-23] MEDS: DOCETAXEL IVPB (11:27)
[2023-11-23] MEDS: SODIUM CHL 0.9% IVPB (11:27)
[2023-11-23] MEDS: POTASSIUM CHLORIDE 10 MEQ CAPSULE ER 20 MEQ PO (12:05)
--- NOTE | 2023-12-07 10:29 | ONC.NURNOTE ---
Addendum entered by Laure Altamirano RN 12/07/23 14:15: Consult with Oral Surgeon scheduled 10/07 at 1pm. Kirti is hopeful that appt will include the extraction. He was prescribed and began today Amoxicillin 875mg PO BID x 10 days. Original Note: Received call from pt's , Kirti. Pt saw dentist today and has an active tooth infection; oral surgery to remove the tooth and begin antibiotics are recommended. Recommended pt follows dentist recommendations as soon as possible. Pt is 2 weeks post last chemo. Scheduled to f/u with Loreta in 1 wk with next cycle of chemo. Reviewed to plan for labs and Loreta appt but treatment may be deferred to allow for healing. Kirti verbalizes understanding.
[2023-12-13 08:55] LABS: Basophils Absolute Auto 0.03 K/uL (0.00-0.30); Basophils Percent Auto 0.3 % (0.0-3.0); Eosinophils Percent Auto 1.8 % (0.0-7.0); Hematocrit 33.6 % (37.0-53.0); Hemoglobin* 11.2 gm/dL (13.5-17.5); Immature Granulocytes Abs Auto 0.14 K/uL (0.00-0.30); Immature Granulocytes Pct Auto 1.3 %; Lymphocytes Percent Auto 7.1 % (20-44); Mean Corpuscular HGB Conc 33 gm/dL (32-36); Mean Corpuscular Hemoglobin 30 pg (26-34); Mean Corpuscular Volume 90 fL (80-100); Monocytes Percent Auto 5.6 % (0.0-11.0); Neutrophils Percent Auto 83.9 % (42.0-72.0); Platelet Count* 292 K/uL (140-440); RDW Coefficient of Variation % 14.5 % (11.5-15.5); Red Blood Count 3.72 m/uL (4.30-5.90); White Blood Count* 10.86 K/uL (4.50-11.00)
[2023-12-13 09:02] LABS: Slide Review Reflex No
[2023-12-13 09:20] LABS: Albumin* 4.1 g/dL (3.3-5.0); Chloride* 102 mmol/L (96-114); Potassium* 3.5 mmol/L (3.6-5.1); Sodium* 136 mmol/L (135-149)
[2023-12-13 09:22] LABS: Anion Gap 4 mEq/L (7-15); Bilirubin Total* 0.6 mg/dL (0.1-1.5); Carbon Dioxide* 30 mmol/L (20-32); Creatinine* 0.7 mg/dL (0.5-1.5); Est. Creatinine Clearance* 60.26; Estimated Glomerular Filt Rate 98 ml/min
[2023-12-13 09:23] LABS: Alanine Aminotransferase* 30 U/L (4-50); Alkaline Phosphatase* 59 U/L (40-150); Aspartate Amino Transferase* 28 U/L (12-35); Blood Urea Nitrogen* 20 mg/dL (7-30); Calcium* 9.3 mg/dL (8.4-10.6); Glucose* 119 mg/dL (60-115); Total Protein* 6.8 g/dL (6.0-8.3)
[2023-12-14] MEDS: SODIUM CHLORIDE 0.9 % (FLUSH) 10 ML SYRINGE IVF (09:45)
[2023-12-14] MEDS: ONDANSETRON 2 MG/ML inj 8 MG IVP (09:45)
[2023-12-14] MEDS: 0.9 % SODIUM CHLORIDE 250 ml IV (09:45)
[2023-12-14] MEDS: DOCETAXEL IVPB (09:59)
[2023-12-14] MEDS: SODIUM CHL 0.9% IVPB (09:59)
[2023-12-14] MEDS: TUBING SECONDARY IVPB (09:59)
--- NOTE | 2023-12-20 08:44 | ONC.NURNOTE ---
Addendum entered by Laure Altamirano RN 12/20/23 08:54: Alysha from ED called back; report given with anticipation of pt arriving this am. Original Note: Received call from pt's reporting that today he has T 102.0 with chills and body aches this morning. He had some chills yesterday, but T 99's. Last chemotherapy treatment (Taxotere) 6 days ago, 12/14/23. Recommended pt be seen in ED; pt and agreeable to this plan. Call out to ED to give heads up; no one available at this time. ED will have someone call back when available.
[2024-01-03 08:55] LABS: Basophils Absolute Auto 0.01 K/uL (0.00-0.30); Basophils Percent Auto 0.1 % (0.0-3.0); Eosinophils Absolute Auto 0.06 K/uL (0.00-0.50); Eosinophils Percent Auto 0.6 % (0.0-7.0); Immature Granulocytes Abs Auto 0.07 K/uL (0.00-0.30); Immature Granulocytes Pct Auto 0.7 %; Lymphocytes Percent Auto 5.9 % (20-44); Mean Corpuscular HGB Conc 33 gm/dL (32-36); Mean Corpuscular Hemoglobin 30 pg (26-34); Mean Corpuscular Volume 90 fL (80-100); Monocytes Percent Auto 5.3 % (0.0-11.0); Neutrophils Percent Auto 87.4 % (42.0-72.0); Platelet Count* 299 K/uL (140-440); Red Blood Count 3.66 m/uL (4.30-5.90); White Blood Count* 10.25 K/uL (4.50-11.00)
[2024-01-03 08:59] LABS: Slide Review Reflex No
[2024-01-03 09:21] LABS: Chloride* 102 mmol/L (96-114); Sodium* 136 mmol/L (135-149)
[2024-01-03 09:23] LABS: Anion Gap 7 mEq/L (7-15); Bilirubin Total* 0.9 mg/dL (0.1-1.5); Carbon Dioxide* 27 mmol/L (20-32); Creatinine* 0.7 mg/dL (0.5-1.5); Est. Creatinine Clearance* 60.26; Estimated Glomerular Filt Rate 98 ml/min
[2024-01-03 09:24] LABS: Alanine Aminotransferase* 28 U/L (4-50); Alkaline Phosphatase* 64 U/L (40-150); Aspartate Amino Transferase* 27 U/L (12-35); Blood Urea Nitrogen* 18 mg/dL (7-30); Calcium* 9.2 mg/dL (8.4-10.6); Glucose* 112 mg/dL (60-115)
[2024-01-04 09:26] LABS: PSA Diagnostic* 4.19 ng/mL (0.10-4.00)
[2024-01-04] MEDS: SODIUM CHLORIDE 0.9 % (FLUSH) 10 ML SYRINGE IVF (10:18)
[2024-01-04] MEDS: HEPARIN 500 UNIT/5 ML SYRINGE IVF (10:19)
[2024-02-06 09:30] VITALS: BP 154/84; PULSE 64; RESP 16; TEMP 36.4; O2SAT 97
[2024-02-07 11:27] VITALS: BP 156/88; PULSE 58; RESP 15; TEMP 36.3; O2SAT 97
== END 2024-04-30 23:59 | disposition home or self-care (01) ==
LOC: CCIC 11:30
PROVIDERS: Internal Medicine Hematology & Oncology; PCP Family Medicine; Referring Provider Family Medicine; Visit Provider Physician Assistant
DX: C61 Malignant neoplasm of prostate (principal)
CPT/HCPCS: 36415; 36591; 80053; 84153; 85025; 96376; 96401; 96413; 99213; 99215; G0463; A9270; J1642; J2405; J7050; J9171; J9217

== ENCOUNTER 2024-07-24 08:50 | Outpatient (RCR) | payer MEDICARE, SELFPAY ==
--- NOTE | 2024-07-18 12:25 | URNOTE ---
Request received for authorization for Leuprolide Acetate ([employer])([id number]). Prior authorization is not required per [facility] injectable drug authorization list.
[2024-07-24 09:12] VITALS: BP 154/82; PULSE 60; RESP 16; TEMP 36.1; O2SAT 99
== END 2025-01-20 23:59 | disposition home or self-care (01) ==
LOC: CCIC 08:50
PROVIDERS: PCP Family Medicine; Referring Provider Family Medicine; Visit Provider Physician Assistant
DX: C61 Malignant neoplasm of prostate (principal); C79.51 Secondary malignant neoplasm of bone
CPT/HCPCS: 96402; J9217

== ENCOUNTER 2025-01-21 08:10 | Outpatient (RCR) | payer MEDICARE, SELFPAY ==
[2025-01-21 08:17] VITALS: BP 145/76; PULSE 62; RESP 18; TEMP 36.8; O2SAT 97
== END 2025-07-20 23:59 | disposition home or self-care (01) ==
LOC: CCIC 08:10
PROVIDERS: PCP Family Medicine; Visit Provider Physician Assistant
DX: C61 Malignant neoplasm of prostate (principal); C79.51 Secondary malignant neoplasm of bone; C77.9 Secondary and unspecified malignant neoplasm of lymph node, unspecified
CPT/HCPCS: 96402; J9217